=== PATIENT | female | born 1960 | race Caucasian/White ===

== ENCOUNTER 2016-08-16 21:06 | Inpatient (IN) | payer OTHER ==
[~2016-08-16] VITALS: Ht 160 cm; Wt 55.1 kg
--- NOTE | ~2016-08-16 | EKG ---
[address] [place] [address] ELECTROCARDIOGRAM REPORT Name: PIPPA DOWNS Room #: 236-P [facility] IN M.R.#: [id number] Admission: 08/16/16 Attend Phys: Bhaskar Joseph MD Discharge: Date of : 62 Report #: [id number] THIS REPORT FOR: //name// [facility] ED Test Date: 2016-08-16 Test Time: 21:52:01 Pat Name: PIPPA DOWNS Department: Room: 236 Gender: F Top Steep Tender: MZOOK : 1960 Requested By: Deanna Cloud Order Number: [id number] MD: Blair De León Measurements Intervals [place] Rate: 77 P: 26 WA: 127 QRS: 19 QRSD: 103 T: 196 QT: 409 QTc: 463 Interpretive Statements Sinus rhythm Repol abnrm suggests ischemia, anterolateral prolonged QT interval no previous ECGs available for comparison Electronically Signed On 08-17-2016 8:34:55 DIE WELDER by Blair De León [email or web address] <ELECTRONICALLY SIGNED> By: Blair De León MD, [facility] 08/17/16 0834 51 51 Blair De León MD, [facility] /EPI
--- NOTE | ~2016-08-16 | H ---
[facility] [place] [address] HISTORY AND PHYSICAL Name: PIPPA DOWNS Room #: 236-P [facility] IN ..#: [id number] Admission: 08/16/16 Attend Phys: Bhaskar Joseph MD Discharge: Date of : 62 Report #: [id number] THIS REPORT FOR: //name// CC: Rigoberto Velázquez ATTENDING PHYSICIAN: Dr. Bhaskar Joseph. PRIMARY CARE PHYSICIAN: Dr. Yuliana Soria. CHIEF COMPLAINT: Lethargy. HISTORY OF PRESENT ILLNESS: The patient is a 56-year-old female who was brought in to the ER by her family due to altered mental status. Apparently, she has been rather somnolent at home. It was difficult to arouse. This patient's daughter was reporting that she was recently started on hemodialysis about 2 weeks ago and has been on some pain medication, patient was evaluated in the ER and noted to have elevated ammonia. The family states she has had elevated ammonia in the past and had been on lactulose at one point, but this was discontinued last year. They deny any history of liver disease. She does have a history of congestive heart failure with an EF of 20-25% and a prior AICD placement. They state that her weight had been significantly elevated prior to starting dialysis. Her normal weight is 118 pounds but she has been up to 163 pounds prior to dialysis and that weight is slowly coming down. 5 days ago, she did notice a wet cough that has been mostly nonproductive and some nasal congestion with drainage that has been clear. The patient who is now more alert, says she does not really remember parts the day, today, but was sleeping a lot and was sleeping in her chair because she was having some trouble breathing. She also describes some generalized weakness. She is currently on BiPAP, but more arousable at this time. She denies any underlying history of lung disease, her ABG showed a mild respiratory acidosis. PAST MEDICAL HISTORY: Heart failure with an EF of 20%-25%, diabetes, end-stage renal disease with currently on hemodialysis, hypertension, hyperlipidemia, mood disorder, obstructive sleep apnea, pulmonary hypertension, blindness of the left eye and legal blindness of the right eye. PAST SURGICAL HISTORY: AICD placement, right arm fistula placement and bilateral thoracentesis. ALLERGIES: BACTRIM CAUSES NAUSEA AND VOMITING. HOME MEDICATIONS: Megace 20 mg q.h.s., Flomax 0.4 mg daily, carvedilol 12.5 mg b.i.d., losartan 50 mg daily, aspirin 81 mg daily. Hydrocodone 5/325 one tab q. 6 hours p.r.n., tramadol 50 mg b.i.d., clonazepam 0.25 mg q. 6 hours p.r.n., [address] [address] HISTORY AND PHYSICAL Name: PIPPA DOWNS Room #: 236-P [facility] IN M.R.#: [id number] Admission: 08/16/16 Attend Phys: Bhaskar Joseph MD Discharge: Date of : 62 Report #: [id number] Zoloft 25 mg q.h.s., torsemide 60 mg in the morning and 40 mg in the evenings and metolazone 5 mg Mondays, Wednesdays and Fridays, Combigan eyedrops, Azopt eyedrops, Travatan eyedrops. Sodium bicarbonate 650 mg daily, Colace 200 mg daily p.r.n. Zofran p.r.n., Tradjenta 2.5 mg daily, glipizide 2.5 mg daily, levothyroxine 0.025 mg daily, vitamin D daily, multivitamin daily. SOCIAL HISTORY: The patient is a never smoker, denies any alcohol or drug use. She lives at home with her ex- and her youngest daughter. She has been a total of 6 children. She has actually been taking some classes to finish her college degree and social work, she had been working as a Seamstress. FAMILY HISTORY: Significant for diabetes in her father. REVIEW OF SYSTEMS: Twelve point review of systems was reviewed with the patient, otherwise negative unless stated in the HPI. PHYSICAL EXAMINATION: GENERAL: The patient is an alert female in no acute distress. VITAL SIGNS: Temperature 36.7, heart rate 73, respirations 18, blood pressure is 107/87, oxygen is 89% on room air. HEENT: PERRLA. Sclerae is nonicteric. Oral mucosa is pink and moist. NECK: Supple, no JVD noted. CARDIOVASCULAR: Normal S1, S2. No murmurs, rubs or gallops. RESPIRATORY: Breath sounds are clear, in bilateral upper lobes she does have some coarseness to left posterior lower lobe. She has a loose nonproductive cough. ABDOMEN: Soft, nontender, nondistended, round with positive bowel sounds. VASCULAR: She does have 3+ bilateral lower extremity edema that is pitting. Pedal pulses are 1+. NEUROLOGIC: The patient is sleepy but very arousable. She is answering questions appropriately and following commands, moving all extremities equally. No focal weakness noted. LABORATORY DATA AND DIAGNOSTICS: WBC is 8.4, hemoglobin 9.5, platelets 221. Sodium 139, potassium 3.9, BUN 30, creatinine 3.7 and glucose is 245. Lactate was 2.8. AST is 256. ALT 128, alkaline phosphatase 294, ammonia was 66. Troponin 0.08. BNP greater than 35,000, albumin 2.3. Lipase 581. Alcohol level is less than 10. ASSESSMENT AND PLAN: 1. Encephalopathy. This appears to be toxic versus hepatic encephalopathy. Her ammonia level is elevated. Although there is no underlying history of liver disease. She does have elevated liver enzymes. She has been given a dose of lactulose and has not had any stool yet. She is currently on BiPAP for some mild respiratory acidosis and mental status is improving. 2. Pneumonia. She does have elevated lactate. We will add Zosyn and follow [facility] [address] [place] [address] HISTORY AND PHYSICAL Name: PIPPA DOWNS Room #: 236-P [facility] IN [facility].#: [id number] Admission: 08/16/16 Attend Phys: Bhaskar Joseph MD Discharge: Date of : 62 Report #: [id number] blood cultures. 3. Acute hypoxic and hypercapnia respiratory failure, this is likely due to fluid overload. She does have a significantly elevated BNP, which is likely due to congestive heart failure and renal failure. She is a dialysis patient and we will consult renal for hemodialysis today for fluid removal. Continue with BiPAP and repeat an ABG in the morning. 4. End-stage renal disease. Renal has been consulted for hemodialysis and more aggressive fluid removal. 5. Acute on chronic systolic heart failure. Last known EF was 20-25%. She does have an AICD in place and proceed with dialysis for fluid removal. 6. Transaminitis and mild pancreatitis. She may have some hepatic congestion due to congestive heart failure. We will further evaluate with abdominal ultrasound in the morning. She is not having any abdominal pain. 7. Diabetes. Blood sugar is elevated. We will continue glipizide as at home and Tradjenta and add sliding scale insulin. Check blood sugars a.c. and h.s. 8. Hypertension. Blood pressure is now elevated. Continue with losartan as at home. 9. Hypothyroidism. Continue Synthroid at home. 10. Deep venous thrombosis prophylaxis, place sequential compression devices. We will continue to follow the patient closely throughout the hospitalization and make changes based on clinical status. <ELECTRONICALLY SIGNED> By: ARA Alfaro 08/18/16 0646 0542 0721 ARA Alfaro /nt
--- NOTE | ~2016-08-16 | EKG ---
[address] [place] [address] ELECTROCARDIOGRAM REPORT Name: PIPPA DOWNS Room #: 236-P [facility] IN M.R.#: [id number] Admission: 08/16/16 Attend Phys: Bhaskar Joseph MD Discharge: Date of : 62 Report #: [id number] THIS REPORT FOR: //name// [facility] Test Date: 2016-08-17 Test Time: 07:03:37 Pat Name: PIPPA DOWNS Department: Room: 236 Gender: F Data Virtualization Consultant: mary ann : 1960 Requested By: Rigoberto Santoro Order Number: [id number] MD: Blair De León Measurements Intervals [place] Rate: 89 P: 3 ND: 117 QRS: 26 QRSD: 80 T: 192 QT: 347 QTc: 423 Interpretive Statements Sinus rhythm Nonspecific ST and T wave abnormality Compared to ECG 01/29/2016 09:24:33 No significant change was found Electronically Signed On 08-17-2016 8:36:23 WEIGHT LOSS SALES CONSULTANT by Blair De León [email or web address] <ELECTRONICALLY SIGNED> By: Blair De León MD, [facility] 08/17/16 0836 2 2 Blair De León MD, [facility] /EPI
--- NOTE | ~2016-08-16 | EEG ---
[facility] [address] [place] [address] ELECTROENCEPHALOGRAM Name: PIPPA DOWNS Room #: 464-P [facility] IN M.R.#: [id number] Admission: 08/16/16 Attend Phys: Bhaskar Joseph MD Discharge: 08/25/16 Date of : 62 Report #: [id number] THIS REPORT FOR: //name// CC: Rigoberto Velázquez DATE OF EE08/25/2016 This patient is being evaluated for confusion. EEG was done by placing the electrodes by standard 10-20 system of electrode placement. Both referential and sequential montages were used for recording. Background activity in this patient's EEG is about 9 Hz and 40 microvolt. The patient went to sleep that is associated with bilaterally symmetrical sleep spindle and vertex sharp waves. Photic stimulation is unremarkable. IMPRESSION: This EEG is intermixed with theta range slowing on both sides. That is a nonspecific abnormality, which can occur with drowsiness, effect of psychotropic medication, dementia, mild encephalopathy, etc. Finding is nonspecific and therefore, clinical correlation is recommended. Thank you very much for this referral. <ELECTRONICALLY SIGNED> By: Moises Chamorro MD 08/25/164 15 49 Moises Chamorro MD /nt
--- NOTE | ~2016-08-16 | HC ---
[facility] [place] [address] CONSULTATION Name: PIPPA DOWNS Room #: 464-P [facility].#: [id number] Admission: 08/16/16 Attend Phys: Bhaskar Joseph MD Discharge: 08/25/16 Date of : 62 Report #: [id number] THIS REPORT FOR: //name// CC: Rigoberto Velázquez REASON FOR CONSULTATION: Congestive heart failure. HISTORY OF PRESENT ILLNESS: The patient is a 56-year-old female with a history of congestive heart failure, status post Medtronic dual chamber ICD implantation by her international manager at [employer] who was admitted to the hospital on 08/16/2016 with altered mental status. The patient had recently been started on dialysis. When she presented here, she was having some acute respiratory issues with an elevated BNP of 35,000 as well as possible hepatic encephalopathy and pneumonia. She has been receiving dialysis with ultrafiltration and slowly her respiratory status has improved. She currently denies any chest pain or chest tightness. She denies any PND or orthopnea. She denies presyncope or syncope. She denies any recent ICD shocks. REVIEW OF SYSTEMS: GENERAL: She is not having any fevers or chills. HEENT: No blurred vision. CARDIOVASCULAR: As above. PULMONARY: She has been having some cough and wheezing, which is slowly improving. GASTROINTESTINAL: Not really having any nausea, vomiting or abdominal pain and no dysuria. GENITOURINARY: No dysuria. She still makes some urine. ENDOCRINE: No heat or cold intolerance. NEUROLOGIC: No focal weakness or headaches. PAST MEDICAL HISTORY: 1. Cardiomyopathy, EF of 20-30% based on echo on 08/17/2016. 2. Dual chamber Medtronic ICD implantation in 2014 per the patient's report. The patient reports it was placed by . 3. Chronic renal insufficiency, status post right AV fistula, currently receiving dialysis. 4. Diabetes. 5. Hyperlipidemia. 6. Hypertension. 7. Mood disorder. SOCIAL HISTORY: She does not smoke. FAMILY HISTORY: Noncontributory. [facility] [address] [place] [address] CONSULTATION Name: PIPPA DOWNS Room #: 464-P [facility] IN [facility]#: [id number] Admission: 08/16/16 Attend Phys: Bhaskar Joseph MD Discharge: 08/25/16 Date of : 62 Report #: [id number] ALLERGIES: INCLUDE BACTRIM and SULFA. PHYSICAL EXAMINATION: VITAL SIGNS: Temperature is 36.6, pulse 99, respiration 18, blood pressure 139/61, sats are 98%. GENERAL: She is in no acute distress. HEENT: Oropharynx is clear. Sclerae anicteric. NECK: Supple, with no thyromegaly. HEART: Regular rate and rhythm with normal S1 and S2. No S3, S4. She does not have elevated jugular venous pressure. She does not have a positive hepatojugular reflex. LUNGS: Demonstrate some mild expiratory wheezes, but there are no crackles. ABDOMEN: Soft, nontender, nondistended with no hepatosplenomegaly. EXTREMITIES: There is no clubbing, cyanosis or edema. NEUROLOGICAL: Cranial nerves 2-12 are intact. LABORATORY DATA: White count is 9, hemoglobin 8.6, hematocrit is 26.7, platelets are 191. Blood gas 7.4, pCO2 42, pO2 83 performed today at 10 a.m. Her INR is 1.3. Chemistry, potassium is 4.2. Her BNP was greater than 35,000 on admission. Her echo as I reviewed above, on 08/17/2016 showed an EF of 20-30% with PA pressures of 58. Her chest x-ray, I personally reviewed, the most recent shows improvement in pulmonary edema from admission. There is evidence of a dual chamber ICD that is Medtronic. Her CT of the chest showed pleural effusion on the left, but noting of significance. ASSESSMENT AND PLAN: In summary, the patient is a 56-year-old presenting with [id number] left ventricular systolic dysfunction as well as possible pneumonia. In terms of managing her cardiomyopathy, I recommend continuing with her current beta namita dose and angiotensive receptor blocking agent. In terms of her diuresis, I will leave this up to the corporation lawyer who will optimize her fluids status via dialysis. She is on a low dose of oral diuretic, she still makes some urine. I would like to obtain a device interrogation to ensure that device is functioning normal and there is no noted arrhythmias. Thus far, on telemetry, she has had no significant arrhythmias other than some sinus tachycardia. Thank you for allowing us to participate in her care and we will continue to follow. <ELECTRONICALLY SIGNED> By: Victor Manuel Shay MD 08/25/16 1346 1508 0026 Victor Manuel Shay MD /nt
--- NOTE | ~2016-08-16 | HC ---
[facility] [place] [address] CONSULTATION Name: PIPPA DOWNS Room #: 236-P [facility] IN ..#: [id number] Admission: 08/16/16 Attend Phys: Bhaskar Joseph MD Discharge: Date of : 62 Report #: [id number] THIS REPORT FOR: //name// CC: Rigoberto Joseph Issa Eber DATE OF SERVICE: 08/17/2016 Nephrology Consultation REASON FOR CONSULTATION: End-stage renal disease requiring dialysis. HISTORY OF PRESENT ILLNESS: This is a 56-year-old female, who presented to the Emergency Room last evening with some apparent mental status changes. She had some mild confusion described by the family. Apparently, this was not associated with hypoglycemia. She does have rather labile diabetes. She tells me today that she has actually been doing better. She has had cough for a couple of days with no sputum, mild chest discomfort with cough. No fever of which she is aware. She did have a mild infiltrate noted on the left base on chest x-ray and has been started on some azithromycin. From a renal standpoint, the patient has end-stage renal disease. She has been dialyzing over the past 3 to 4 weeks at [facility] in [place]. She dialyzes on Sunday, , Sunday basis. She has been massively volume overloaded and she has been coming down on her weight about 1 kg per treatment and has had a net drop of over 10 kg in the last 3 weeks. She still is edematous on the lower extremities and the abdomen. She has been dialyzing using a right upper arm fistula and that has been working well. Overall, she is very pleased with how she has done with dialysis. The other issues that upon arrival, she was noted to have an elevated ammonia level that was in the Emergency Room. Her ammonia level was 66. In addition, she had mild transaminitis with an AST of 256 and ALT of 128 and alkaline phosphatase of 296, total bilirubin was 1.0. We have some remote measures of the transaminases and they have previously been normal, so this is a change. I did talk to the dialysis unit. She had negative hepatitis B markers on presentation, as is usually checked. She did start to the hepatitis B vaccine and has received one of her series of that recently. The patient recalls a couple of years ago being at [facility] and being told she had an elevated transaminase. She is on lactulose for a while, but that was eventually stopped and she is a bit sketchy on those details. PAST MEDICAL HISTORY: Is that of longstanding diabetes mellitus. She had diabetic nephropathy. She had extensive proteinuria. She eventually got to the [address] [address] CONSULTATION Name: PIPPA DOWNS Room #: 236-P [facility] IN M.R.#: [id number] Admission: 08/16/16 Attend Phys: Bhaskar Joseph MD Discharge: Date of : 62 Report #: [id number] point where she had chronic kidney disease, progressing from stage IV to stage V and was unable to control volume, so she was started on dialysis, as noted above. She has had recurrent urinary tract infections. She has had some hyperlipidemia. She was recently diagnosed with hypothyroidism and started on thyroid replacement. She has been chronically in a poor nutritional state and was started on some Megace to help with that. MEDICATIONS: On admission include carvedilol 12.5 mg b.i.d., clonazepam p.r.n, glipizide 2.5 mg daily, levothyroxine 0.025 mg daily, Tradjenta 2.5 mg daily, losartan 50 mg daily, Megace 20 mg twice daily. Metolazone 5 mg three days weekly on Sunday, Sunday, Sunday. Zoloft 50 mg daily, sodium bicarbonate 650 mg daily, tamsulosin 0.4 mg daily, torsemide 40 mg daily, tramadol p.r.n., 3 different eye drops. She gets erythropoietin at dialysis. ALLERGIES: Listed to BACTRIM, which cause GI distress. FAMILY HISTORY: Negative for renal disease. SOCIAL HISTORY: The patient is . Lives in [place], [place]. She is disabled. She has a couple of daughters, who assist in her care. REVIEW OF SYSTEMS: States that she had been feeling better with her dialysis therapy. Her volume had been improving. She was having less edema. Appetite is still marginal. She denies recent nausea or vomiting. She is well aware that her sugars are very labile. She has had cough for a couple of days. No sputum at this point. She does have some mild pleuritic chest pain with cough. She is unaware of fevers or chills. No rashes, although she has some erythema with her chronic lower extremity edema. She has a right upper arm fistula and has been pleased with its flow and function at dialysis and it has been doing well with cannulations. No diarrhea. She denies dysuria at this time. She still does make some urine and is still on the diuretics. No recent visual or hearing change. Her weight has been dropping with the progressive ultrafiltration with her dialysis. PHYSICAL EXAMINATION: GENERAL: Very frail 56-year-old female, looks substantially older than her stated age. VITAL SIGNS: Blood pressure 154/73, heart rate 89, temperature 98.6, oxygen saturation 98% and respiratory rate 16. HEENT: Shows somewhat sunken facial features. Pupils are equal and reactive. Sclerae nonicteric. Oral mucosa is moist. NECK: Veins are not distended. No adenopathy. CHEST: Shows a few rales in the bases, more severe on the left than the right, fairly symmetrical excursion. CARDIOVASCULAR: Heart has a regular rate and rhythm with a grade 2 systolic murmur. [facility] [address] [place] [address] CONSULTATION Name: PIPPA DOWNS Room #: [address] [place] [address] [place] [facility]#: [id number] Admission: 08/16/16 Attend Phys: Bhaskar Joseph MD Discharge: Date of : 62 Report #: [id number] ABDOMEN: Mildly protuberant. She has 2+ abdominal wall edema. Bowel sounds are present. I am unable to palpate organomegaly or masses. In particular, no right upper quadrant tenderness. EXTREMITIES: Show a nice right upper arm fistula with excellent bruit and thrill. There is no upper extremity edema. She has brawny lower extremity edema 4+ to the knees, 2+ through the thighs. NEUROLOGIC: At this point, she is awake, alert and oriented, without any focal findings. LABORATORY DATA: From today: Sodium 139, potassium 3.9, chloride 98, bicarbonate 27, BUN 30, creatinine 3.7, glucose 245. AST 256, ALT 128, calcium 8.5, total bilirubin 1.0, total protein 6.3, albumin 2.6, ammonia down to 47. INR 1.7. White count 8.4; hemoglobin 9.5; hematocrit 29.5; platelets 221,000. Differential on the white count 87 segs, 5 lymphs, 6 monos. ASSESSMENT: 1. End-stage renal disease. She is due for dialysis today. We will schedule that for later this afternoon. We will go for 3 L of ultrafiltration to continue to work on her volume control. 2. Mental status changes yesterday. They have totally clear today, I am more concern that she might have been hypokalemic at that time. <ELECTRONICALLY SIGNED> By: Issa Velázquez MD 08/18/16 0913 0952 1054 Issa Velázquez MD /nt
--- NOTE | ~2016-08-16 | 2DMMODE ---
[facility] [place] [address] 2 D/M-MODE ECHOCARDIOGRAM Name: PIPPA DOWNS Room #: 236-P [facility] IN [facility]#: [id number] Admission: 08/16/16 Attend Phys: Bhaskar Joseph MD Discharge: Date of : 62 Date of Service: 08/17/16 1029 Report #: [id number] THIS REPORT FOR: //name// Transthoracic Echocardiography Ordering physician: Mirela Garces Referring physician: Issa Velázquez, Mirela Fisher Refinery Operator Crude Unit: CARLITA Mitchell Indications/History: ICD, DM, HTN. BP: 149 / HR: 90bpm Height: 62in Weight: 138.7lb 70 Study data: M-mode, complete 2D, complete spectral Doppler, and color Doppler. Location: Bedside. Routine. Image quality was good. 2D measurements Normal Normal LVID ED 41.4mm 36-57 IVS ED 9.4mm 6-11 LVID ES 36.9mm 23-40 LVPW ED 9.3mm 6-11 LA volume 29ml/m2 16-28 AoRoot diam 25.4mm 21-37 index ED LVOT diameter 18mm 18-23 Findings: Left ventricle: The cavity size was normal. Wall thickness was normal. Systolic function was severely reduced. The estimated ejection fraction was in the range of 25% to 30%. Diffuse hypokinesis. Right ventricle: The cavity size was dilated. Pacer wire or catheter noted in right ventricle. Systolic function was normal. Right atrium: The atrium was dilated. Pacer ordefibrillatorwiresnoted in right atrium. Left atrium: The atrium was at the upper limits of normal in size. Volume index: 29ml/m2 (S). Aortic valve: Trileaflet; mildly thickened, mildly [facility] [address] [place] [address] 2 D/M-MODE ECHOCARDIOGRAM Name: PIPPA DOWNS Room #: 236-P [facility] IN [facility].#: [id number] Admission: 08/16/16 Attend Phys: Bhaskar Joseph MD Discharge: Date of : 62 Date of Service: 08/17/16 1029 Report #: [id number] calcified leaflets. Doppler: There was no stenosis. No regurgitation. Peak velocity: 143.6cm/s (S). Mitral valve: Structurally normal valve. Doppler: There was no evidence for stenosis. Mild regurgitation. Peak E-wave velocity: 79.3cm/s. Peak gradient: 2.5mm Hg (D). Peak A-wave velocity: 101.3cm/s. Tricuspid valve: Structurally normal valve. Doppler: There was no evidence for stenosis. Moderate regurgitation. Regurgitant peak velocity: 328.5cm/s. Peak RV-RA gradient: 43mm Hg (S). Pulmonic valve: Structurally normal valve. Doppler: There was no evidence for stenosis. Mild regurgitation. Pericardium: A small pericardial effusion was identified. Aorta: Aortic root: The aortic root was normal in size. Pulmonary artery: Systolic pressure was estimated to be 58mm Hg. Diastolic function: Doppler parameters are consistent with abnormal left ventricular relaxation (grade 1 diastolic dysfunction). Systemic veins: Inferior vena cava: The vessel was dilated; respirophasic changes in dimension were absent. Conclusions 1. Left ventricle: Systolic function was severely reduced. The estimated ejection fraction was in the range of 25% to 30%. Diffuse hypokinesis. Doppler parameters are consistent with abnormal left ventricular relaxation (grade 1 diastolic dysfunction). 2. Right atrium: Pacer ordefibrillatorwiresnoted in right atrium. 3. Aortic valve: Trileaflet; mildly thickened, mildly calcified leaflets. There was no stenosis. No regurgitation. 4. Mitral valve: Structurally normal valve. Mild regurgitation. 5. Pericardium, extracardiac: A small pericardial effusion was identified. 6. Pulmonary arteries: Systolic pressure was estimated to be 58mm Hg. <ELECTRONICALLY SIGNED> By: Blair De León MD, [facility] 08/17/16 1218 1029 1218 Blair De León MD, [facility] /apurva
--- NOTE | ~2016-08-16 | HC ---
[facility] [address] [place] [address] CONSULTATION Name: PIPPA DOWNS Room #: 464-P [facility].#: [id number] Admission: 08/16/16 Attend Phys: Bhaskar Joseph MD Discharge: 08/25/16 Date of : 62 Report #: [id number] THIS REPORT FOR: //name// CC: Rigoberto Schulteothy Eber DATE OF SERVICE: 08/18/2016 HISTORY OF PRESENT ILLNESS: The patient is a 56-year-old white female who was admitted with mental status changes. She was noted to be lethargic, difficult to arouse. She had been started on hemodialysis approximately 2 weeks ago. She had an elevated ammonia. She was diagnosed with a toxic versus hepatic encephalopathy. No underlying history of liver disease, but she had elevated liver enzymes. She also was diagnosed with a pneumonia and IV antibiotics were started. She had acute hypoxic and hypercapnic respiratory failure thought likely due to fluid overload. She has acute on chronic systolic heart failure. Noted to have transaminitis and mild pancreatitis with some hepatic congestion due to congestive heart failure. She has been treated in the intensive care unit. Her respiratory failure has improved. Pulmonary is following her pulmonary infiltrate. We are seeing her in rehabilitation medicine consultation. PAST MEDICAL HISTORY: Includes congestive heart failure, prior AICD, history of end-stage renal disease on hemodialysis started a couple of weeks ago, CHF, obstructive sleep apnea, right arm fistula, sleep apnea, pulmonary hypertension, blindness of the left eye and legal blindness of the right eye. PAST SURGICAL HISTORY: Includes the AICD placement and past history of bilateral thoracentesis. ALLERGIES: BACTRIM causes nausea and vomiting. MEDICATIONS: Please see the full medication listing. FAMILY HISTORY: Significant for diabetes in her father. SOCIAL HISTORY: Nonsmoker, lives at home with her ex- and her youngest daughter. There are 13 steps up. She has a Medicaid homemaker 5 hours per day 7 days per week. She did need some assistance, especially when the edema was worse with her congestive heart failure but otherwise did most of the dressing herself. She did not typically utilize gait aids within the house but used a roller walker with a seat outside the house and also has a manual wheelchair. She has a daughter who is a nurse here at [facility] on the 3rd floor. The male family members typically carry her up the steps, although she [facility] [address] [place] [address] CONSULTATION Name: PIPPA DOWNS Room #: 464-P [facility] IN ..#: [id number] Admission: 08/16/16 Attend Phys: Bhaskar Joseph MD Discharge: 08/25/16 Date of : 62 Report #: [id number] was able to walk down the steps with assistance premorbidly. REVIEW OF SYSTEMS: No current complaints of chest pain, shortness of breath or abdominal discomfort. Notes that she is starting to feel better. Denies any focal extremity pain complaints. PHYSICAL EXAMINATION: GENERAL: A 56-year-old white female, in no obvious distress, seen in the intensive care unit. VITAL SIGNS: Last recorded temperature 98.4, pulse 95, respirations are 17, blood pressure 159/72. NEUROLOGIC: She is alert, follows basic 1 step commands. Some latency to her responses. She does defer some of her answers to her daughter. Facies appeared to be symmetric. Nasal prong O2 is in place. She does have decreased vision as noted above. UPPER EXTREMITIES: She has functional range of motion of both upper extremities, although she does have the right arm fistula. Strength is probably a grade 4-/5. LOWER EXTREMITIES: No focal calf swelling. Strength is a grade 4- to 3+/5. DTRs are decreased. She does tend to fatigue fairly quickly. ASSESSMENT: A 56-year-old white female with the following problem list: 1. Encephalopathy appears to be toxic versus hepatic. This is improving. 2. Acute hypercapnic respiratory failure. 3. Elevated ammonia and liver function tests. 4. Pulmonary infiltrate. 5. End-stage renal disease on hemodialysis. 6. Severe pulmonary hypertension. 7. Cardiomyopathy. 8. Diabetes mellitus. 9. Significant decreased vision premorbidly. 10. History of automatic implantable cardioverter defibrillator placement. PLAN: Therapy evaluations are underway. She may be a candidate for an acute in-hospital inpatient rehabilitation stay. We will need to see how she does in therapies. Thank you for asking us to follow in this patient's care. <ELECTRONICALLY SIGNED> By: Kyaw Cross MD 09/05/16 1617 1213 1324 Kyaw Cross MD /nt
--- NOTE | ~2016-08-16 | CNG ---
[facility] [place] [address] CYTO-NONGYN REPORT PROCEDURE Name: PIPPA DOWNS Fernando Room #: 464-P ADM IN M.R.#: [id number] Admission: 08/16/16 Date of : 62 Discharge: Report #: [id number] Path Case #: [id number] CYTOPATHOLOGY REPORT COLLECTION DATE: 08/21/2016 RECEIVED DATE: 08/22/2016 SUBMITTING PHYS: Dr. Rigoberto Santoro OTHER PHYS: Dr. Bhaskar Joseph CLINICAL HISTORY: CHF, Hypercapnia, Stage 5 RF, Metabolic encephalopathy. SPECIMEN(S) RECEIVED: A.Pleural fluid * * * * * * * * * * * * FINAL DIAGNOSIS: A. Pleural fluid: NEGATIVE FOR MALIGNANT CELLS. Mesothelial cells, lymphocytes, and debris. PATHOLOGIST: Nettie Ambriz M.D. REPORT ELECTRONICALLY SIGNED BY: Nettie Ambriz M.D. DATE/TIME: 08/23/2016 15:17 * * * * * * * * * * * * GROSS PATHOLOGY: A. Pleural fluid: The specimen is submitted unfixed, labeled "P[place]a [place]s". Received by the Cytology Department is 20 mL of tanvi fluid. One ThinPrep slide and a cell block were prepared. (clt 08.22.2016) VICE PRESIDENT OF HUMAN RESOURCES(S): DENISE Horner([facility]) INITIAL CPT CODE(S): A; 95951, 69156 Professional services performed by [facility] at [facility] [address], [place] [address] Technical services performed by [facility] at [address] [place] [address]., [address], [place] [address]. [facility] [address] [place] [address], [facility] [address] [place] [address] PHONE: [phone] [facility] [address] [place] [place] [address] CYTO-NONGYN REPORT PROCEDURE Name: PIPPA DOWNS Room #: 464-P ADM IN M.R.#: [id number] Admission: 08/16/16 Date of : 62 Discharge: Report #: [id number] Path Case #: [id number] DIRECTOR: Antony Melton M.D. * * * END OF REPORT * * *
--- NOTE | ~2016-08-16 | HC ---
[facility] [place] [address] CONSULTATION Name: PIPPA DOWNS Room #: 236-P [facility] IN ..#: [id number] Admission: 08/16/16 Attend Phys: Bhaskar Joseph MD Discharge: Date of : 62 Report #: [id number] THIS REPORT FOR: //name// CC: Rigoberto Velázquez DATE OF SERVICE: 08/16/2016 REASON FOR CONSULTATION: Acute respiratory failure. IMPRESSION: 1. Acute hypercapnic respiratory failure/pulmonary infiltrate possible pneumonia 2. Possible Kayode-Rocha respirations. 3. Elevated ammonia. 4. Renal failure. 5. Cardiomyopathy. 6. Severe pulmonary hypertension. 7. Macrocytic anemia. 8. Elevated liver function tests, question related to hepatic congestion from right-sided failure. PLAN: Discussed with ____, will place in ICU. May use BiPAP at night, should she fall asleep. We will continue to use lactulose to get her ammonia level down. Dr. Velázquez has been called and will do dialysis in the morning. HISTORY OF PRESENT ILLNESS: This is a very pleasant 56-year-old female who came in with altered mental status, had periods of somnolence, lethargy, recently diagnosed with stage V renal failure, on dialysis 2 weeks ago. Weight has been starting to go down. She is on medicines for chronic pain, but only took one earlier today. She complains of some cough but no definite sputum production. No fever, chills or sweats. Positive nausea. PAST MEDICAL HISTORY AND SURGICAL HISTORY: Include pacemaker automatic implantable cardioverter-defibrillator, fistula placement. CURRENT MEDICATIONS: Include aspirin, cholecalciferol, Flomax, glipizide, sodium bicarbonate, sertraline, Megace, tramadol, ____, brinzolamide, travoprost, Zofran, clonazepam, Colace, Coreg, Synthroid, Tradjenta, Demadex. ALLERGIES: BACTRIM AND ____. SOCIAL HISTORY: Negative current tobacco or EtOH use. [facility] [address] [address] CONSULTATION Name: PIPPA DOWNS Fernando Room #: 236-P [facility] IN ..#: [id number] Admission: 08/16/16 Attend Phys: Bhaskar Joseph MD Discharge: Date of : 62 Report #: [id number] FAMILY HISTORY: Noncontributory at present. REVIEW OF SYSTEMS: History of UTI, CKD, neuropathy, hyperlipidemia, IBS, hypertension, cardiomyopathy, cardiac arrest in 2013, anemia, CKD, neuropathy, uropathy, diabetes-induced glaucoma, retinopathy, weakness, headache. PHYSICAL EXAMINATION: VITAL SIGNS: Pulse 73, respirations 18, blood pressure 107/87. EYES: Negative icterus. NECK: Trachea midline. LUNGS: Showed decreased breath sounds, left greater than right. HEART: Regular. ABDOMEN: Bowel sounds present, edematous. EXTREMITIES: Moves all extremities. Positive lower extremity edema. Daughter related that they may have had cellulitis in the past or what appeared to be cellulitis, but not treated with antibiotics. LABORATORY DATA: BUN 30, creatinine 3.6, glucose 231, lipase 581, SGPT 39. SGOT 110, albumin 2.3, lactate 2.8. EKG showed T-wave abnormality, no longer present. Chest x-ray showed left basilar atelectasis, similar to prior, ammonia 66. Alcohol less than 10, pH 7.25, pCO2 of 50, pO2 of 107 on 4 liters. White count 7.5, hemoglobin 10.1, MCV 105.5, platelets 214, will follow closely with you. She did have an echocardiogram this past summer which amazingly showed an ejection fraction of 25-30%, dilated right and left atrium, mild mitral regurgitation, mild pulmonic regurgitation, PA systolic of 88. <ELECTRONICALLY SIGNED> By: Rigoberto Santoro MD 08/17/16 1832 2303 0835 Rigoberto Santoro MD /nt
[~2016-08-16 21:06] MED LIST: ASPIRIN325 PO; AZOPT5 ML OP; CARVEDILOL25 MG PO; CLONAZEPAM 0.50.5 M1 PO; COLACE100 MG PO; COMBIGAN EYE DR10 ML OPHTHALMIC; COZAAR 50 MG TA50 M2 PO; DEMADEX20 MG PO; FLOMAX0.4 MG PO; GLUCOTROL5 MG PO; HYDROCODON-ACE1 EAC7 PO; HYDROCORTISONE CREAM TOP; LOSARTAN POTASS50 MG PO; MEGESTROL ACETA20 MG PO; METOLAZONE 2.52.5 M1 PO; MULTIVITAMINS1 EAC7 PO; NITROSTAT0.4 MG SL; PROTONIX40 M2 PO; SODIUM BICARBO650 M3 PO; TOPROL XL50 MG; TRADJENTA5 MG PO; TRAMADOL 50 MG50 MG PO; TRAVATAN Z2.5 ML OPHTHALMIC; VITAMIN D1000 UNI1 PO; ZOCOR40 MG; ZOFRAN4 MG PO; ZOLOFT50 MG PO
[2016-08-16 21:26] LABS: ABSOLUTE NEUTROPHILS 6.1 thou/uL (1.4-8.2); BASOPHILS 0.8 % (0.0-2.0); HEMATOCRIT 31.1 % (37.0-47.0); HEMOGLOBIN 10.1 gm/dL (12.0-15.0); MANUAL DIFF NO; MCH 34.1 pg (26.0-34.0); MCHC 32.3 % (28.0-37.0); MCV 105.5 fL (80.0-100.0); MONOCYTES 6.5 % (1.0-8.0); PLATELET COUNT 214 thou/uL (150-400); POLYS 81.7 % (36.0-66.0); RBC 2.95 mil/uL (4.20-5.00); RDW 19.1 % (10.5-14.5); WBC 7.5 thou/uL (4.0-11.0)
[2016-08-16 21:27] LABS: ABG SAMPLE TYPE ARTERIAL; BE(vivo) -5.7 mmol/L (-2 to +3); HCO3 21.6 mmol/L (22.0-26.0); LACTATE 3.19 mmol/L (0.5-2.0); O2(CT) 14.4 mL/dL (15.0-23.0); O2Hb 95.7 % (92.0-98.0); PCO2 50.3 mmHg (35.0-45.0); PO2 106.9 mmHg (80.0-100.0); STICK SITE L.BRACHIAL; sO2 97.1 % (92.0-98.0); tCO2 23.1 mmol/L (24.0-30.0)
[2016-08-16] MEDS ORDERED: LEVOTHYROXIN0.025 MG PO (21:34)
[2016-08-16 21:35] LABS: ANION GAP 15 mmol/L (7-16); BUN 30 mg/dL (7-18); CALCIUM 8.4 mg/dL (8.5-10.1); CHLORIDE 98 mmol/L (98-107); CO2 26 mmol/L (21-32); CREATININE 3.6 mg/dL (0.6-1.3); GLUCOSE 231 mg/dL (70-99); POTASSIUM 4.6 mmol/L (3.5-5.1); SODIUM 139 mmol/L (136-145)
[2016-08-16 21:38] LABS: POC CA IONIZED 4.4 mg/dL (4.5-5.3); POC CREATININE 3.1 mg/dL (0.6-1.3); POC HEMOGLOBIN 11.6 gm/dL (12.0-15.0); POC POTASSIUM 4.1 mmol/L (3.5-5.1)
[2016-08-16] MEDS ORDERED: TRADJENTA5 MG PO (21:41)
[2016-08-16] MEDS ORDERED: DEMADEX20 MG PO ×2 (21:43)
[2016-08-16] MEDS ORDERED: HYDROCODONE-AP1 EAC6 PO (21:45)
[2016-08-16 21:48] LABS: ALBUMIN 2.3 g/dL (3.4-5.0); ALKALINE PHOSPHATASE 283 U/L (46-116); DIRECT BILIRUBIN 0.8 mg/dL (<0.1-0.3); SGOT 110 U/L (15-37); SGPT 39 U/L (30-65); TOTAL PROTEIN 5.8 g/dL (6.4-8.2); TROPONIN-I 0.08 ng/mL (<0.04-0.07)
[2016-08-16 22:09] LABS: NT-PRO BRAIN NAT PEPTIDE > 35000 pg/mL (<300)
[2016-08-16 23:32] LABS: INR 1.7
[2016-08-17] VITALS (52 sets, daily range): BP systolic 124–182; BP diastolic 55–107
[2016-08-17 01:50] LABS: ABSOLUTE NEUTROPHILS 7.4 thou/uL (1.4-8.2); BASOPHILS 1.4 % (0.0-2.0); EOSINOPHILS 0.1 % (0.0-3.0); HEMATOCRIT 29.5 % (37.0-47.0); HEMOGLOBIN 9.5 gm/dL (12.0-15.0); LYMPHOCYTES 4.7 % (24.0-44.0); MCH 33.5 pg (26.0-34.0); MCV 104.7 fL (80.0-100.0); MONOCYTES 6.5 % (1.0-8.0); PLATELET COUNT 221 thou/uL (150-400); POLYS 87.3 % (36.0-66.0); RBC 2.82 mil/uL (4.20-5.00); RDW 18.7 % (10.5-14.5); WBC 8.4 thou/uL (4.0-11.0)
[2016-08-17 02:05] LABS: ALBUMIN 2.6 g/dL (3.4-5.0); CALCIUM 8.5 mg/dL (8.5-10.1); CREATININE 3.7 mg/dL (0.6-1.3); MANUAL DIFF NO; POTASSIUM 3.9 mmol/L (3.5-5.1); TOTAL PROTEIN 6.3 g/dL (6.4-8.2)
[2016-08-17 05:54] LABS: ABG SAMPLE TYPE ARTERIAL; BE(vivo) -1.2 mmol/L (-2 to +3); HCO3 23.4 mmol/L (22.0-26.0); LACTATE 1.54 mmol/L (0.5-2.0); O2(CT) 13.8 mL/dL (15.0-23.0); O2Hb 97.7 % (92.0-98.0); PCO2 38.6 mmHg (35.0-45.0); PO2 149.3 mmHg (80.0-100.0); STICK SITE L.RADIAL; sO2 98.9 % (92.0-98.0); tCO2 24.6 mmol/L (24.0-30.0)
[2016-08-17 05:55] LABS: Pressure Support 6 cm H20
[2016-08-17 17:10] LABS: HEPATITIS C VIRUS AB 0.1 (0.0-0.9)
[2016-08-18] VITALS (46 sets, daily range): BP systolic 87–162; BP diastolic 46–134
[2016-08-18 04:58] LABS: HEMATOCRIT 27.5 % (37.0-47.0); HEMOGLOBIN 9.1 gm/dL (12.0-15.0); MCH 33.7 pg (26.0-34.0); MCHC 33.1 % (28.0-37.0); MCV 101.9 fL (80.0-100.0); RBC 2.7 mil/uL (4.20-5.00); RDW 18.6 % (10.5-14.5); WBC 8.6 thou/uL (4.0-11.0)
[2016-08-18 05:39] LABS: ALBUMIN 2.2 g/dL (3.4-5.0); CALCIUM 8.2 mg/dL (8.5-10.1); POTASSIUM 3.9 mmol/L (3.5-5.1); TOTAL BILIRUBIN 0.8 mg/dL (<0.1-1.0); TOTAL PROTEIN 5.6 g/dL (6.4-8.2)
[2016-08-18 05:41] LABS: CREATININE 2.3 mg/dL (0.6-1.3)
[2016-08-19] VITALS (33 sets, daily range): BP systolic 81–161; BP diastolic 21–117
[2016-08-19 05:04] LABS: HEMATOCRIT 27.8 % (37.0-47.0); HEMOGLOBIN 8.9 gm/dL (12.0-15.0); MCH 33.2 pg (26.0-34.0); MCHC 31.9 % (28.0-37.0); MCV 104.2 fL (80.0-100.0); RBC 2.67 mil/uL (4.20-5.00); RDW 19.2 % (10.5-14.5); WBC 8.8 thou/uL (4.0-11.0)
[2016-08-19 05:42] LABS: ALBUMIN 2.1 g/dL (3.4-5.0); CALCIUM 8.1 mg/dL (8.5-10.1); POTASSIUM 3.9 mmol/L (3.5-5.1); TOTAL BILIRUBIN 0.9 mg/dL (<0.1-1.0); TOTAL PROTEIN 5.7 g/dL (6.4-8.2)
[2016-08-19] MEDS ORDERED: NEPHROCAPS SOFT1 CAP PO (10:47)
[2016-08-20 05:39] VITALS: BP 129/67
[2016-08-20 08:11] VITALS: BP 156/72
[2016-08-20 12:10] VITALS: BP 147/68
[2016-08-20 16:32] VITALS: BP 104/51
[2016-08-20 20:00] VITALS: BP 138/66
[2016-08-21 04:00] VITALS: BP 118/53
[2016-08-21 05:54] LABS: HEMATOCRIT 28.1 % (37.0-47.0); HEMOGLOBIN 8.9 gm/dL (12.0-15.0); MCH 33.2 pg (26.0-34.0); MCHC 31.8 % (28.0-37.0); MCV 104.6 fL (80.0-100.0); PLATELET COUNT 191 thou/uL (150-400); RBC 2.68 mil/uL (4.20-5.00); RDW 18.6 % (10.5-14.5); WBC 10.1 thou/uL (4.0-11.0)
[2016-08-21 06:13] LABS: ALBUMIN 2.2 g/dL (3.4-5.0); CALCIUM 8.5 mg/dL (8.5-10.1); POTASSIUM 4.3 mmol/L (3.5-5.1); TOTAL PROTEIN 6.5 g/dL (6.4-8.2)
[2016-08-21 06:26] LABS: MANUAL DIFF YES
[2016-08-21 07:33] LABS: ABSOLUTE NEUTROPHILS 8.4 thou/uL (1.4-8.2); ANISOCYTOSIS 2+; MACROCYTES 1+; TOTAL CELL COUNT 100
[2016-08-21 08:46] VITALS: BP 120/56
[2016-08-21 09:43] VITALS: BP 131/60
[2016-08-21 11:12] LABS: HEMATOCRIT 26.7 % (37.0-47.0); HEMOGLOBIN 8.6 gm/dL (12.0-15.0); MCH 33.7 pg (26.0-34.0); MCHC 32.2 % (28.0-37.0); MCV 104.6 fL (80.0-100.0); RBC 2.56 mil/uL (4.20-5.00); RDW 18.7 % (10.5-14.5)
[2016-08-21 11:20] LABS: CALCIUM 8.3 mg/dL (8.5-10.1); CREATININE 3.3 mg/dL (0.6-1.3); POTASSIUM 4.2 mmol/L (3.5-5.1)
[2016-08-21 11:26] LABS: APTT 30.1 Seconds (24.5-32.8); INR 1.3; PROTIME 13.4 Seconds (9.3-11.4)
[2016-08-21 12:04] LABS: ABG SAMPLE TYPE ARTERIAL; BE(vivo) -2.5 mmol/L (-2 to +3); HCO3 24.6 mmol/L (22.0-26.0); LACTATE 1.99 mmol/L (0.5-2.0); O2(CT) 12.5 mL/dL (15.0-23.0); O2Hb 87.4 % (92.0-98.0); PCO2 54.4 mmHg (35.0-45.0); STICK SITE L.RADIAL; pH 7.274 (7.360-7.450); sO2 88.8 % (92.0-98.0); tCO2 26.3 mmol/L (24.0-30.0)
[2016-08-21 13:50] VITALS: BP 124/59
[2016-08-21 21:18] VITALS: BP 139/76
[2016-08-21 23:53] VITALS: BP 141/68
[2016-08-22 03:59] VITALS: BP 131/64
[2016-08-22 07:00] VITALS: BP 140/64
[2016-08-22 12:44] VITALS: BP 152/68
[2016-08-22] MEDS ORDERED: COZAAR 25 MG TA25 M1 PO (14:01)
[2016-08-22] MEDS ORDERED: HUMALOG100 UNIT/1 SUBQ (14:01)
[2016-08-22] MEDS ORDERED: LANTUS100 UNIT/M SUBQ (14:01)
[2016-08-22] MEDS ORDERED: PROCRIT20000 UNIT SUBQ (14:01)
[2016-08-22] MEDS ORDERED: TRAMADOL 50 MG50 MG PO (14:07)
[2016-08-22] MEDS ORDERED: HYDROCODON-ACE1 EAC7 PO (14:07)
[2016-08-22 16:25] VITALS: BP 127/54
[2016-08-22 20:37] VITALS: BP 153/65
[2016-08-23 04:38] VITALS: BP 153/65
[2016-08-23 08:45] VITALS: BP 164/75
[2016-08-23 09:09] LABS: BF LINING CELLS 17 % (Not Estab.); BF MACROPHAGE 3 % (Not Estab.); BF NEUTROPHILS 8 % (0-24); BF NUCLEATED CELLS 28 /mm3 (0-499); BF RBC 1000 /uL (Not Estab.); CLARITY HA (Clear); COLOR RD (())
[2016-08-23 11:13] LABS: % SATURATION 16 % (15-55); IRON 26 ug/dL (27-159); TIBC 167 ug/dL (250-450); UIBC 141 ug/dL (131-425)
[2016-08-23 12:30] VITALS: BP 116/55
[2016-08-23 14:27] LABS: TOTAL VOLUME 60
[2016-08-23 15:56] VITALS: BP 14/68; BP 72/68
[2016-08-23 16:09] LABS: BODY FLUID ALBUMIN 1.4 g/dL (()); BODY FLUID AMYLASE 51 U/L (()); BODY FLUID GLUCOSE 293 mg/dL (()); BODY FLUID LDH 107 IU/L (()); BODY FLUID PROTEIN 2.7 g/dL (())
[2016-08-23 18:05] VITALS: BP 156/90
[2016-08-23 19:31] VITALS: BP 127/67
[2016-08-23 20:12] LABS: ABG SAMPLE TYPE ARTERIAL; BE(vivo) 1.6 mmol/L (-2 to +3); HCO3 27.1 mmol/L (22.0-26.0); LACTATE 1.16 mmol/L (0.5-2.0); O2(CT) 12.6 mL/dL (15.0-23.0); O2Hb 89.5 % (92.0-98.0); PCO2 46.5 mmHg (35.0-45.0); PO2 60.5 mmHg (80.0-100.0); STICK SITE L.BRACHIAL; pH 7.383 (7.360-7.450); sO2 90.7 % (92.0-98.0); tCO2 28.5 mmol/L (24.0-30.0)
[2016-08-24 04:18] VITALS: BP 132/82
[2016-08-24 07:14] VITALS: BP 139/61
[2016-08-24 10:16] LABS: ABG SAMPLE TYPE ARTERIAL; BE(vivo) 1.9 mmol/L (-2 to +3); HCO3 26.8 mmol/L (22.0-26.0); LACTATE 0.97 mmol/L (0.5-2.0); O2(CT) 12.8 mL/dL (15.0-23.0); O2Hb 95.1 % (92.0-98.0); PCO2 42.9 mmHg (35.0-45.0); PO2 83.8 mmHg (80.0-100.0); pH 7.413 (7.360-7.450); sO2 96.4 % (92.0-98.0); tCO2 28.1 mmol/L (24.0-30.0)
[2016-08-24 10:17] LABS: STICK SITE L.RADIAL
[2016-08-24 10:18] LABS: ABG COMMENT NO COMPLICATIONS
[2016-08-24 16:56] VITALS: BP 142/76
[2016-08-24 19:39] VITALS: BP 142/83
[2016-08-25 03:35] VITALS: BP 156/70
[2016-08-25 05:43] LABS: HEMATOCRIT 25.8 % (37.0-47.0); HEMOGLOBIN 8.5 gm/dL (12.0-15.0); MCH 33.8 pg (26.0-34.0); MCHC 33.1 % (28.0-37.0); RBC 2.53 mil/uL (4.20-5.00); RDW 17.9 % (10.5-14.5); WBC 8.4 thou/uL (4.0-11.0)
[2016-08-25 06:18] LABS: CALCIUM 8.3 mg/dL (8.5-10.1); CREATININE 2.4 mg/dL (0.6-1.3); POTASSIUM 3.9 mmol/L (3.5-5.1)
[2016-08-25 07:21] VITALS: BP 162/71
[2016-08-25 09:09] LABS: CHOLESTEROL 165 mg/dL (<200); HDL CHOLESTEROL 27 mg/dL (>40); LDL CHOLESTEROL 113 mg/dL (<100); TC:HDL 6.1 Ratio (Not establshd); TRIGLYCERIDE 126 mg/dL (<150); VLDL 25 mg/dL (<40)
[2016-08-25] MEDS ORDERED: HYDROCODONE-AP1 EAC6 PO (11:16)
[2016-08-25] MEDS ORDERED: HEPARIN SO5000 UNIT/ SUBQ (11:16)
[2016-08-25 11:17] VITALS: BP 162/70
[2016-08-25] MEDS ORDERED: AMOX TR-K CLV1 EAC3 PO (11:21)
[2016-08-25] MEDS ORDERED: ULTRAM 50MG TAB50 MG PO (11:34)
[2016-08-25] MEDS ORDERED: HYDROCODON-ACE1 EAC7 PO (11:34)
[2016-08-25 14:12] LABS: FOLIC ACID > 19.9 ng/mL (>3.0)
[2016-08-26] MEDS ORDERED: ASPIR 8181 MG PO (18:35)
[2016-08-26] MEDS ORDERED: METOLAZONE 2.52.5 M1 PO (18:51)
[2016-09-08] MEDS ORDERED: ASPIR 8181 MG PO (11:02)
== END 2016-08-25 13:01 | DRG 177 ==
LOC: ER 21:06 → EROBS 22:18 → ICU 22:18 → 4W 08-19 22:24
PROVIDERS: Emergency Medicine; Family Medicine; Hospitalist; Internal Medicine Nephrology; Internal Medicine Pulmonary Disease; Nurse Practitioner Family; Psychiatry & Neurology Neurology
DX: J69.0 Pneumonitis due to inhalation of food and vomit (principal); I50.23 Acute on chronic systolic (congestive) heart failure; J96.02 Acute respiratory failure with hypercapnia; N18.6 End stage renal disease; N17.0 Acute kidney failure with tubular necrosis; J96.01 Acute respiratory failure with hypoxia; K85.90 Acute pancreatitis without necrosis or infection, unspecified; G93.41 Metabolic encephalopathy; I42.9 Cardiomyopathy, unspecified; I13.11 Hypertensive heart and chronic kidney disease without heart failure, with stage 5 chronic kidney disease, or end stage renal disease; E46 Unspecified protein-calorie malnutrition; J90 Pleural effusion, not elsewhere classified; E11.319 Type 2 diabetes mellitus with unspecified diabetic retinopathy without macular edema; E11.39 Type 2 diabetes mellitus with other diabetic ophthalmic complication; H40.9 Unspecified glaucoma; E11.22 Type 2 diabetes mellitus with diabetic chronic kidney disease; E11.40 Type 2 diabetes mellitus with diabetic neuropathy, unspecified; K58.9 Irritable bowel syndrome, unspecified; E78.5 Hyperlipidemia, unspecified; I27.2 Other secondary pulmonary hypertension; D53.9 Nutritional anemia, unspecified; E03.9 Hypothyroidism, unspecified; R74.0 Nonspecific elevation of levels of transaminase and lactic acid dehydrogenase [LDH]; G47.33 Obstructive sleep apnea (adult) (pediatric); H54.8 Legal blindness, as defined in USA; F39 Unspecified mood [affective] disorder; D63.1 Anemia in chronic kidney disease; E11.65 Type 2 diabetes mellitus with hyperglycemia; Z99.2 Dependence on renal dialysis; Z79.84 Long term (current) use of oral hypoglycemic drugs; Z95.810 Presence of automatic (implantable) cardiac defibrillator; Z88.2 Allergy status to sulfonamides; Z88.8 Allergy status to other drugs, medicaments and biological substances; Z88.1 Allergy status to other antibiotic agents; Z98.890 Other specified postprocedural states; Z83.3 Family history of diabetes mellitus; Z79.82 Long term (current) use of aspirin; Z79.899 Other long term (current) drug therapy; Z68.25 Body mass index [BMI] 25.0-25.9, adult
CPT/HCPCS: 10045; 10203; 32100

== ENCOUNTER 2016-08-22 14:59 | Inpatient (IN) | payer OTHER ==
[~2016-08-22] VITALS: Ht 160 cm; Wt 53.5 kg
--- NOTE | ~2016-08-22 | PLAN ---
[facility] [address] [place] [address] [place] [address] REHAB UNIT PLAN OF CARE Name: PIPPA DOWNS Fernando Room #: 514-P [facility] IN M.R.#: [id number] Admission: 08/25/16 Attend Phys: Kyaw Cross MD Discharge: 08/30/16 Date of : 62 Report #: [id number] THIS REPORT FOR: //name// CC: Yuliana Cross ADDENDUM The patient did miss some therapy minutes on 08/30/2016, secondary to dialysis. <ELECTRONICALLY SIGNED> By: Kyaw Cross MD 09/05/16 1617 1041 1126 Kyaw Cross MD /nt
--- NOTE | ~2016-08-22 | H ---
[facility] [place] [address] HISTORY AND PHYSICAL Name: PIPPA DOWNS Room #: 514-P [facility] IN M.R.#: [id number] Admission: 08/25/16 Attend Phys: Kyaw Cross MD Discharge: 08/30/16 Date of : 62 Report #: [id number] THIS REPORT FOR: //name// CC: Yuliana Cross DATE OF SERVICE: 08/25/2016 CHIEF COMPLAINT: Mobility and self-care deficits due to encephalopathy. HISTORY OF PRESENT ILLNESS: The patient is a pleasant 56-year-old right-hand dominant female who was admitted to [facility] on 08/16/2016 with multiple medical issues. On admission, she was found to be acutely confused without focal weakness. She was diagnosed with a metabolic encephalopathy. She is felt to be at high risk for strokes. She is currently receiving hemodialysis for acute renal failure. She has had diabetes for approximately 13 years and records indicate that she has had poor control of her diabetes. She also has a history of congestive heart failure with a low ejection fraction of 20-25%. She has had a great deal of difficulty with her mobility and her ability to perform activities of daily living. Secondary to a decline in her overall function and the need for rehabilitation, management of her complex medical condition is outlined above. She is now being admitted to the rehabilitation unit for comprehensive therapies. NOTE: I am covering for Dr. Kyaw Cross and therefore completing this history and physical for him. PAST MEDICAL HISTORY: As stated above. Also, pertinent for end-stage renal disease requiring hemodialysis, hypertension, hyperlipidemia, mood disorder, obstructive sleep apnea, pulmonary hypertension, blindness of her left eye and legal blindness of her right eye. Medications reviewed. I note that she is receiving clonazepam, please see the written documentation of this history and physical for full details. ALLERGIES: BACTRIM. FUNCTIONAL HISTORY: Before admission, she states that she used a rolling walker to ambulate. She does not drive. SOCIAL HISTORY: She lives with her ex- in their own home. They have several steps to get in the house and they do have steps inside the house as [facility] [address] [place] [address] HISTORY AND PHYSICAL Name: PIPPA DOWNS Room #: 514-P [facility] IN ..#: [id number] Admission: 08/25/16 Attend Phys: Kyaw Cross MD Discharge: 08/30/16 Date of : 62 Report #: [id number] well. REVIEW OF SYSTEMS: As above. Specifically, she denies chest pain and shortness of breath. She has poor vision. She denies difficulty with her hearing. She does have dentures. Otherwise, the remainder of her 14-point review is negative except for what was stated above. PHYSICAL EXAMINATION: GENERAL: No acute distress, cachectic in appearance. VITAL SIGNS: Afebrile. CARDIOVASCULAR: S1, S2. LUNGS: Clear to auscultation. ABDOMEN: Soft, nontender, nondistended, positive bowel sounds. EXTREMITIES: Calves are nontender. LYMPHATICS: No cervical adenopathy. MUSCULOSKELETAL: Functionally, she is able to move her arms and legs throughout. Functional range of motion with 4/5 strength, tone within normal limits. No muscle atrophy. NEUROLOGIC AND PSYCHIATRIC: Coordination is fair. Muscle stretch reflexes are 1/4 and symmetric. Sensation is diminished in her feet bilaterally. She is alert, able to answer my questions, pleasant and cooperative with the examination. IMPRESSION: Mobility and self-care deficits in a 56-year-old right-hand dominant female secondary to: 1. Metabolic encephalopathy. 2. End-stage renal disease, on hemodialysis. 3. Congestive heart failure. 4. Prior auto-implantable cardioverter defibrillator. 5. Obstructive sleep apnea. 6. Pulmonary hypertension. 7. Legal blindness. 8. Cardiomyopathy. 9. Acute hypercapnic respiratory failure, resolved. PLAN: 1. Admit to the rehabilitation unit for comprehensive therapies. 2. Please see the plan of care, post-admission physician evaluation and the admission orders for full details of her rehabilitation care plan. 3. Discussed the inpatient rehabilitation program with her and her family in detail and they are in agreement. 4. Developed the inpatient rehabilitation plans with her interdisciplinary therapy team. 5. Weekly team conferences to be held to discuss her progress. 6. Dr. Kyaw Cross will assume care of the patient when he returns on 08/29/[place] [address] HISTORY AND PHYSICAL Name: PIPPA DOWNS Room #: 514-P [facility] IN M.R.#: [id number] Admission: 08/25/16 Attend Phys: Kyaw Cross MD Discharge: 08/30/16 Date of : 62 Report #: [id number] POST ADMISSION PHYSICIAN EVALUATION: A post-admission physician evaluation has been completed. The patient's preadmission screening was reviewed in its entirety. The current clinical status is supported by the information contained within it. The patient is an appropriate candidate to undergo comprehensive inpatient rehabilitation consisting of daily PT, OT and speech 3 hours a day for 5 days a week. Furthermore, nothing has changed since the preadmission screen was completed to suggest that the patient would not be able to tolerate or benefit from the rehabilitation program. It is my opinion that inpatient rehabilitation rather than shelter is more appropriate for the patient due to multiple medical needs, requiring comprehensive followup care. The patient is at risk of clinical complications during participation in rehabilitation due to the following: Adverse medical conditions, congestive heart failure, end-stage renal disease requiring hemodialysis, prior AICD placement, obstructive sleep apnea, pulmonary hypertension, legal blindness. My plan to manage these conditions, which could impact her participation in rehabilitation is to consult Internal Medicine and Nephrology to follow her closely during her rehabilitation course. INDIVIDUALIZED PLAN OF CARE: SUMMARIZATION OF FINDINGS: The patient is receiving inpatient rehabilitation due to the following functional impairments: 1. Metabolic encephalopathy. 2. Generalized weakness. 3. Respiratory failure, improved. 4. Cardiomyopathy. 5. Diabetes mellitus with evidence of peripheral neuropathy. IDENTIFIED INTERVENTIONS: Physical therapy, occupational therapy, and speech therapy to address mobility, self-care deficits, communication and cognitive and swallowing impairments, physical medicine and rehabilitation. We will provide management of rehabilitation care plan. Internal Medicine will follow for multiple medical issues. Rehabilitation nursing care 24 hours a day for care needs. rn women services for discharge planning and medical equipment needs. Dietitian consultation for nutritional purposes. ESTIMATED LENGTH OF STAY: Approximately 14 days, which is in agreement with the preadmission screen. ANTICIPATED FUNCTIONAL OUTCOME: Modified independent with mobility and self-care skills. This is a realistic goal based on the previous level of function and progress thus far with therapies. [facility] [address] [place] [address] HISTORY AND PHYSICAL Name: PIPPA DOWNS Room #: 514-P [facility] IN [facility]#: [id number] Admission: 08/25/16 Attend Phys: Kyaw Cross MD Discharge: 08/30/16 Date of : 62 Report #: [id number] ANTICIPATED DISCHARGE DESTINATION: Home with family. She will likely need home health services at that time. Medical prognosis is good. She will continue to follow with Internal Medicine and Nephrology. Anticipated therapies include physical therapy, occupational therapy, speech therapy 3 hours a day 5 days a week for an anticipated duration of 14 days. SUMMARIZATION OF TREATMENT PLAN: The patient will continue to receive an inpatient rehabilitation program as outlined above in an effort to improve her overall function and return home at a modified independent level within 14 days. <ELECTRONICALLY SIGNED> By: Kyaw Cross MD 09/04/16 1122 1456 1607 Joe Campuzano DO /nt
--- NOTE | ~2016-08-22 | HC ---
[facility] [place] [address] CONSULTATION Name: PIPPA DOWNS Room #: 514-P [facility] IN .R.#: [id number] Admission: 08/25/16 Attend Phys: Kyaw Cross MD Discharge: 08/30/16 Date of : 62 Report #: [id number] THIS REPORT FOR: //name// CC: Yuliana Cross DATE OF SERVICE: 08/29/2016 ATTENDING PHYSICIAN: Kyaw Cross MD. AIRPLANE TECHNICIAN: Bassam Forrester, PhD. CLINICAL PRESENTATION: The patient is a 56-year-old female admitted to the [facility] for a comprehensive inpatient rehabilitation program to improve functional mobility and activities of daily living and self-care and mental status secondary to an encephalopathy from acute hypercapnic respiratory failure. The patient was admitted to the hospital confused and disoriented without focal weakness. She is reported to have a history of congestive heart failure with low ejection fraction. Difficulty with mobility and ability to perform activities of daily living had been described. 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 A complete description of her medical condition, history and medications can be found in her medical record. Neuropsychological consultation was requested to provide assistance in the assessment of cognitive and emotional status and to provide recommendations and services. Prior to this most recent admission, she was living independently with the assistance of an ex- and a daughter in her home. She has 6 children. She is a high school graduate with a 2-year associate of arts degree. 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 TECHNIQUES UTILIZED: Clinical interview, review of medical records, staff consultation and behavioral observation, mini mental status exam 2 standard version, and verbal fluency assessment (letter and category). EXAMINATION FINDINGS: The patient was alert and oriented during the assessment. There is no report of auditory or visual hallucinations. She does not present with aphasia. She denied subjective feelings of anxiety or depression and does not report difficulty with memory, concentration, or word finding. The patient provided a consistent history of events surrounding her hospitalization. Although she is described as having been confused and disoriented at her initial admission. [address] [address] CONSULTATION Name: PIPPA DOWNS Room #: 514-P [facility] IN [facility].#: [id number] Admission: 08/25/16 Attend Phys: Kyaw Cross MD Discharge: 08/30/16 Date of : 62 Report #: [id number] Her performance was within normal limits on the MMSE 2 standard version. She does score of 29 of 30 on the MMSE 2 standard version. The patient missed 1 on a copying test that was primarily influenced by visual disability. Her performance in letter fluency was within normal limits with a raw score of 45 and a T score of 52. Category fluency was within normal limits with a raw score of 20 and T score of 49. DIAGNOSTIC IMPRESSION AND SUMMARY: The patient initially presented with delirium with a suspicion in regard to memory deficits from the encephalopathy and concern about hypoxia. However, her performance on brief neuro behavioral status exam is within normal limits. RECOMMENDATIONS: The patient may benefit from additional assistance upon her return home that includes managing medication and aspects of her medical treatment. She does have a caregiver that is with her throughout the day and can provide additional structure to maintain safety. Thank you very much for allowing me to provide the consultation on this patient. <ELECTRONICALLY SIGNED> By: Bassam Forrester, PhD 09/14/16 [id number] Bassam Forrester, PhD /nt
[~2016-08-22 14:59] MED LIST changes: +COZAAR 25 MG TA25 M1 PO; +HUMALOG100 UNIT/1 SUBQ; +HYDROCODONE-AP1 EAC6 PO; +LANTUS100 UNIT/M SUBQ; +LEVOTHYROXIN0.025 MG PO; +NEPHROCAPS SOFT1 CAP PO; +PROCRIT20000 UNIT SUBQ
[2016-08-25] MEDS ORDERED: HYDROCODONE-AP1 EAC6 PO (11:16)
[2016-08-25] MEDS ORDERED: HEPARIN SO5000 UNIT/ SUBQ (11:16)
[2016-08-25] MEDS ORDERED: AMOX TR-K CLV1 EAC3 PO (11:21)
[2016-08-25] MEDS ORDERED: HYDROCODON-ACE1 EAC7 PO (11:34)
[2016-08-25] MEDS ORDERED: ULTRAM 50MG TAB50 MG PO (11:34)
[2016-08-25 16:51] VITALS: BP 146/70
[2016-08-26 06:35] VITALS: BP 152/75
[2016-08-26 08:25] VITALS: BP 160/76
[2016-08-26 17:25] VITALS: BP 172/96
[2016-08-26] MEDS ORDERED: ASPIR 8181 MG PO (18:35)
[2016-08-26] MEDS ORDERED: METOLAZONE 2.52.5 M1 PO (18:51)
[2016-08-26 21:00] VITALS: BP 153/84
[2016-08-27 05:03] LABS: HEMATOCRIT 26.3 % (37.0-47.0); HEMOGLOBIN 8.3 gm/dL (12.0-15.0); MCH 33.2 pg (26.0-34.0); MCHC 31.7 % (28.0-37.0); MCV 104.8 fL (80.0-100.0); RBC 2.51 mil/uL (4.20-5.00); RDW 17.6 % (10.5-14.5); WBC 10.4 thou/uL (4.0-11.0)
[2016-08-27 05:13] LABS: CALCIUM 8.6 mg/dL (8.5-10.1); CREATININE 2.8 mg/dL (0.6-1.3); POTASSIUM 4.4 mmol/L (3.5-5.1)
[2016-08-27 05:27] VITALS: BP 136/59
[2016-08-27 16:00] VITALS: BP 142/76
[2016-08-28 05:47] VITALS: BP 140/73
[2016-08-28 15:30] VITALS: BP 86/44
[2016-08-29 05:24] VITALS: BP 134/65
[2016-08-29 08:00] VITALS: BP 126/60
[2016-08-30 05:36] VITALS: BP 117/54
[2016-08-30 10:00] VITALS: BP 162/83
[2016-08-30 11:09] VITALS: BP 162/82
[2016-08-30 12:35] VITALS: BP 162/82
[2016-08-30 15:02] VITALS: BP 162/82
[2016-09-08] MEDS ORDERED: ASPIR 8181 MG PO (11:02)
== END 2016-08-30 15:05 | disposition home health service (06) | DRG 70 ==
PROVIDERS: Family Medicine
PROC: 5A1D60Z (ICD-10-PCS; principal; 2016-08-28)
DX: G93.41 Metabolic encephalopathy (principal); N18.6 End stage renal disease; J96.02 Acute respiratory failure with hypercapnia; I42.9 Cardiomyopathy, unspecified; J90 Pleural effusion, not elsewhere classified; I13.2 Hypertensive heart and chronic kidney disease with heart failure and with stage 5 chronic kidney disease, or end stage renal disease; I50.9 Heart failure, unspecified; G47.33 Obstructive sleep apnea (adult) (pediatric); H54.8 Legal blindness, as defined in USA; I27.2 Other secondary pulmonary hypertension; E78.5 Hyperlipidemia, unspecified; F39 Unspecified mood [affective] disorder; R41.0 Disorientation, unspecified; E11.319 Type 2 diabetes mellitus with unspecified diabetic retinopathy without macular edema; K58.9 Irritable bowel syndrome, unspecified; E11.40 Type 2 diabetes mellitus with diabetic neuropathy, unspecified; H40.9 Unspecified glaucoma; R91.1 Solitary pulmonary nodule; R53.81 Other malaise; Z88.1 Allergy status to other antibiotic agents; Z79.899 Other long term (current) drug therapy; Z99.2 Dependence on renal dialysis; Z86.74 Personal history of sudden cardiac arrest; Z79.4 Long term (current) use of insulin; Z95.810 Presence of automatic (implantable) cardiac defibrillator; Z79.82 Long term (current) use of aspirin
CPT/HCPCS: 10112; 32100

== ENCOUNTER → 2016-11-16 | Outpatient (CLI) | payer OTHER ==
[~2016-11-16] MED LIST changes: +AMOX TR-K CLV1 EAC3 PO; +ASPIR 8181 MG PO; +HEPARIN SO5000 UNIT/ SUBQ; +MEGESTROL ACETA40 MG PO; +RENVELA800 MG PO; +ULTRAM 50MG TAB50 MG PO
== END ==
LOC: RAD 13:02
DX: J18.9 Pneumonia, unspecified organism (principal); J90 Pleural effusion, not elsewhere classified; R06.02 Shortness of breath

== ENCOUNTER 2016-11-18 17:04 | Inpatient (IN) | payer OTHER ==
[~2016-11-18] VITALS: Ht 160 cm; Wt 49.0 kg
--- NOTE | ~2016-11-18 | HC ---
[facility] [place] [address] CONSULTATION Name: PIPPA DOWNS Room #: 312-P ADM IN M.R.#: [id number] Admission: 11/18/16 Attend Phys: Eric Grimes DO Discharge: Date of : 62 Report #: [id number] THIS REPORT FOR: //name// CC: Yuliana Grimes REASON FOR CONSULTATION: End-stage renal disease. HISTORY OF PRESENT ILLNESS: The patient is well known to our service, longstanding diabetes mellitus with triopathy, on dialysis now for several months. She had extreme volume overload at the start of her treatments, but this has improved nicely. She suffered severe heartburn, missed her dialysis on Sunday, had multiple complaints and eventually ended up in the Emergency Room yesterday and was admitted to the hospital. She apparently also had some nausea and vomiting but because of the missed dialysis also had hyperkalemia. PAST MEDICAL HISTORY: End-stage renal disease, on dialysis, peripheral neuropathy, retinopathy with very poor vision, recent pneumonia in August of this year with left total effusion requiring thoracentesis, chronic ____ complaints. REVIEW OF SYSTEMS: GENERAL: She feels poorly. SKIN: Unremarkable. EYES: Vision is quite poor, particularly on the left. ENT: Hearing okay, swallows okay. Denies mouth sores or ulcers. ENDOCRINE: Positive for the diabetes. RESPIRATORY: Denies shortness of breath at the current time, no pleuritic pain. CARDIAC: She had some transient substernal chest pain yesterday along with multiple other pains and complaints which are essentially chronic and almost daily for this patient. GASTROINTESTINAL: Intermittent nausea and vomiting, difficulty eating. GENITOURINARY: No dysuria or hematuria. NEUROLOGIC: Does get around with a walker, some numbness in the feet. FAMILY HISTORY: Noncontributory. SOCIAL HISTORY: No cigarettes or alcohol. Lives at home with her ex-. PHYSICAL EXAMINATION: VITAL SIGNS: This is a chronically ill-appearing patient. She is eating her breakfast and is in no distress this morning. SKIN: Unremarkable. SKELETAL: Well-developed, well-nourished fistula in the right upper arm. HEENT: Extraocular movements full. Vision poor. Hearing intact. Mucous membranes are moist. Tongue, buccal mucosa benign. NECK: Supple. [address] [address] CONSULTATION Name: PIPPA DOWNS Room #: 312[facility] IN M.R.#: [id number] Admission: 11/18/16 Attend Phys: Eric Grimes DO Discharge: Date of : 62 Report #: [id number] CHEST: Shows slight diminished breath sounds at the left base. HEART: Regular. ABDOMEN: Distended, possibly some fluid. EXTREMITIES: Show no edema. LABORATORY DATA: Potassium 5.7. ASSESSMENT AND PLAN: 1. End-stage renal disease, potassium is up, she missed the treatment. She would likely benefit from some dialysis today and again tomorrow. Orders are written. 2. Swollen abdomen with discomfort. I will check an abdominal sonogram. She may have some ascites. 3. Decreased left ventricular ejection fraction with history of automatic implantable cardioverter-defibrillator placement. 4. Diabetes mellitus with triopathy. 5. Noncompliance and misses dialysis. By: 0900 2216 Monroe Gamboa MD /nt
--- NOTE | ~2016-11-18 | EKG ---
[place] [address] [facility] [place] [address] ELECTROCARDIOGRAM REPORT Name: PIPPA DOWNS Room #: 312-P ADM IN M.R.#: [id number] Admission: 11/18/16 Attend Phys: Eric Grimes DO Discharge: Date of : 62 Report #: [id number] THIS REPORT FOR: //name// [facility] ED Test Date: 2016-11-18 Test Time: 17:12:54 Pat Name: PIPPA DOWNS Department: Room: [facility] Gender: F Sleep Tech: MZBRAD : 1960 Requested By: Purvi Chang Order Number: [id number] MD: Blair De León Measurements Intervals [place] Rate: 97 P: 20 AK: 117 QRS: 7 QRSD: 84 T: 144 QT: 345 QTc: 439 Interpretive Statements Sinus rhythm Borderline short AK interval Nonspecific ST and T wave abnormality Compared to ECG 09/08/2016 07:06:47 no significant change was found Electronically Signed On 11-19-2016 11:48:58 CDT by Blair De León [email or web address] <ELECTRONICALLY SIGNED> By: Blair De León MD, [facility] 11/19/16 1148 171 171 Blair De León MD, [facility] /EPI
--- NOTE | ~2016-11-18 | CNG ---
[facility] [place] [address] CYTO-NONGYN REPORT PROCEDURE Name: PIPPA DOWNS Room #: 312-P DIS IN M.R.#: [id number] Admission: 11/18/16 Date of : 62 Discharge: 11/20/16 Report #: [id number] Path Case #: [id number] CYTOPATHOLOGY REPORT COLLECTION DATE: 11/20/2016 RECEIVED DATE: 11/20/2016 SUBMITTING PHYS: Violet Mancia OTHER PHYS: Dr. Eric Soria CLINICAL HISTORY: Chest pain SPECIMEN(S) RECEIVED: A.Abdominal fluid * * * * * * * * * * * * FINAL DIAGNOSIS: A. Abdominal fluid: - No malignant epithelial cells identified. - Reactive mesothelial cells and predominantly chronic inflammatory cells including scattered small lymphocytes identified. PATHOLOGIST: Carol Shane M.D. REPORT ELECTRONICALLY SIGNED BY: Carol Shane M.D. DATE/TIME: 11/21/2016 11:58 * * * * * * * * * * * * GROSS PATHOLOGY: A. Abdominal fluid: The specimen is submitted unfixed, labeled "[place]". Received by the Cytology Department is 10 mL of yellow fluid. One ThinPrep slide and a cell block were prepared. (kg 11/20/16) MARINE FIRER(S): DENISE Green[facility] INITIAL CPT CODE(S): A; 80923, 36529 Professional services performed by [facility] at [facility] [address], [place] [address] Technical services performed by [facility] at [address] [place] [address]., [address], [place], [place] [address]. [facility] [address] [place] [address], [address] [facility] [address] [place] [address] CYTO-NONGYN REPORT PROCEDURE Name: PIPPA DOWNS Room #: 312-P [facility] IN M.R.#: [id number] Admission: 11/18/16 Date of : 62 Discharge: 11/20/16 Report #: [id number] Path Case #: [id number] [place] [address] PHONE: [phone] DIRECTOR: Antony Melton M.D. * * * END OF REPORT * * *
--- NOTE | ~2016-11-18 | HC ---
[facility] [place] [address] CONSULTATION Name: PIPPA DOWNS Room #: 312-P [facility] IN .R.#: [id number] Admission: 11/18/16 Attend Phys: Eric Grimes DO Discharge: Date of : 62 Report #: [id number] THIS REPORT FOR: //name// CC: Yuliana Grimes HISTORY OF PRESENT ILLNESS: The patient is a 56-year-old woman with a moderately severe ischemic cardiomyopathy. She has been evaluated most recently by Dr. Victor Manuel Shay in August. Her usual top case assembler is at [facility]. Due to severe left ventricular dysfunction, empiric Medtronic dual chamber ICD was placed in 2014. Around the same time, stress testing demonstrated no evidence of ischemia. The ejection fraction is in the 25 to 30% range. She now presents with several weeks of intermittent epigastric discomfort and occasional acid brash. Yesterday's episode was more severe lasting about an hour and a half. She presented to the Emergency Department and was given antacid with relief of her pain. Since being placed on antacid, she has had complete resolution of the same discomfort which she has had for several weeks. She denies orthopnea or paroxysmal nocturnal dyspnea. There have been no symptoms to suggest ICD discharge. She does have a history of coronary angiography several years ago and mild to moderate nonocclusive coronary artery disease was identified. ALLERGIES: INCLUDE BACTRIM. MEDICATIONS: Include aspirin 81 mg daily, Flomax 0.4 mg daily, sertraline 25 mg at night, eyedrops, carvedilol 12.5 mg twice daily, Synthroid 0.025 mg daily, Tradjenta 2.5 mg daily, torsemide 20 mg daily, and Megace. PAST MEDICAL HISTORY: Notable for type 2 diabetes, nonischemic cardiomyopathy, prior dual chamber ICD placement, end-stage renal disease on dialysis, anemia, pneumonia in 2017. SOCIAL HISTORY: She is a nonsmoker. FAMILY HISTORY: Unremarkable for premature coronary artery disease. REVIEW OF SYSTEMS: All systems negative except as that noted above. PHYSICAL EXAMINATION: GENERAL: A pleasant woman in no distress. VITAL SIGNS: Blood pressure is 160/80, heart rate of 90 and regular. She is afebrile, 5 feet 3 inches tall, 105 pounds. HEENT: There are neither xanthelasma, subcutaneous xanthomata, oral mucosal or digital cyanosis or kyphoscoliosis present. CHEST: Clear to auscultation and percussion. CARDIOVASCULAR: Regular rate and rhythm with a normal S1, S2. Jugular venous pressure is elevated. [facility] [address] [place] [address] CONSULTATION Name: PIPPA DOWNS Room #: 312-P [facility] IN M.R.#: [id number] Admission: 11/18/16 Attend Phys: Eric Grimes DO Discharge: Date of : 62 Report #: [id number] ABDOMEN: Soft and nontender. EXTREMITIES: Without cyanosis, clubbing, or edema. Radial pulses are 2+. NEUROLOGIC: She is alert with a nonfocal exam. LABORATORY DATA: Sodium is 133, potassium 5.7, creatinine 4.9, glucose 230. Serial cardiac enzymes are all zero. B-type natriuretic peptide greater than 35,000. White count 5.8, hemoglobin 11, hematocrit 36, platelet count 201. Recent A1c of 7.3. Chest x-ray demonstrates cardiomegaly. EKG, sinus rhythm with nonspecific ST segment abnormality. IMPRESSION: 1. Wljrw-ro-lghmate systolic heart failure, reduced ejection fraction. 2. Chest pain consistent with reflux or GI discomfort, now resolved. No evidence of IL or ischemia. 3. Hypertension. 4. Nonischemic cardiomyopathy, ejection fraction of 35% range by recent echocardiography. 5. End-stage renal disease, on hemodialysis. 6. Diabetes. 7. Hypothyroidism, on replacement. RECOMMENDATIONS: 1. Resume usual medications. 2. At this point, no additional cardiovascular testing is needed. I do not suspect ischemia or infarction as the etiology of her pain. I agree with instituting PPI therapy. The patient does have a usual and regular followup with her top case assembler through [facility]. We will be available as issues or problems arise. Thank you for asking me to participate in her care. <ELECTRONICALLY SIGNED> By: Blair De León MD, FACC 11/20/16 0825 1104 2329 Blair De León MD, FACC /nt
[~2016-11-18 17:04] MED LIST changes: -MEGESTROL ACETA40 MG PO; -RENVELA800 MG PO
[2016-11-18 17:05] VITALS: BP 173/90
[2016-11-18 17:16] LABS: HEMATOCRIT 37.8 % (37.0-47.0); HEMOGLOBIN 12.3 gm/dL (12.0-15.0); MCH 33.7 pg (26.0-34.0); MCHC 32.6 g/dL (28.0-37.0); MCV 103.6 fL (80.0-100.0); RBC 3.65 mil/uL (4.20-5.00); RDW 15.2 % (10.5-14.5); WBC 6.3 thou/uL (4.0-11.0)
[2016-11-18] MEDS ORDERED: MEGESTROL ACETA40 MG PO (18:00)
[2016-11-18 18:46] LABS: ALBUMIN 2.8 g/dL (3.4-5.0); ALKALINE PHOSPHATASE 358 U/L (46-116); ANION GAP 10 mmol/L (7-16); BUN 47 mg/dL (7-18); CALCIUM 9.5 mg/dL (8.5-10.1); CHLORIDE 99 mmol/L (98-107); CO2 25 mmol/L (21-32); CREATININE 4.8 mg/dL (0.6-1.0); GLUCOSE 196 mg/dL (74-106); POTASSIUM 5.5 mmol/L (3.5-5.1); SGOT 20 U/L (15-37); SGPT 12 U/L (30-65); SODIUM 134 mmol/L (136-145); TOTAL PROTEIN 7.4 g/dL (6.4-8.2); TROPONIN-I < 0.04 ng/mL (<0.04-0.07)
[2016-11-18 20:10] VITALS: BP 168/72
[2016-11-18 20:20] VITALS: BP 190/99
[2016-11-18 20:25] VITALS: BP 190/99
[2016-11-18] MEDS ORDERED: HYDROCODONE-AP1 EAC6 PO (20:51)
[2016-11-18] MEDS ORDERED: RENVELA800 MG PO (21:11)
[2016-11-18 23:25] VITALS: BP 153/79
[2016-11-19 00:32] LABS: ABSOLUTE NEUTROPHILS 4.3 thou/uL (1.4-8.2); BASOPHILS 0.6 % (0.0-2.0); EOSINOPHILS 0.5 % (0.0-3.0); HEMATOCRIT 36.3 % (37.0-47.0); HEMOGLOBIN 11.8 gm/dL (12.0-15.0); LYMPHOCYTES 15.6 % (24.0-44.0); MANUAL DIFF NO; MCH 33.5 pg (26.0-34.0); MCHC 32.5 g/dL (28.0-37.0); MCV 103.1 fL (80.0-100.0); MONOCYTES 8.8 % (1.0-8.0); PLATELET COUNT 201 thou/uL (150-400); POLYS 74.5 % (36.0-66.0); RBC 3.52 mil/uL (4.20-5.00); RDW 15.2 % (10.5-14.5); WBC 5.8 thou/uL (4.0-11.0)
[2016-11-19 00:49] LABS: BUN 48 mg/dL (7-18); CALCIUM 8.8 mg/dL (8.5-10.1); CO2 26 mmol/L (21-32); CREATININE 4.9 mg/dL (0.6-1.0); GLUCOSE 260 mg/dL (74-106); TROPONIN-I < 0.04 ng/mL (<0.04-0.07)
[2016-11-19 01:06] LABS: CHLORIDE 98 mmol/L (98-107); POTASSIUM 5.7 mmol/L (3.5-5.1); SODIUM 133 mmol/L (136-145)
[2016-11-19 01:09] LABS: ANION GAP 9 mmol/L (7-16)
[2016-11-19 03:35] VITALS: BP 163/90
[2016-11-19 08:10] VITALS: BP 169/89
[2016-11-19 12:55] VITALS: BP 172/95
[2016-11-19 15:36] VITALS: BP 181/95
[2016-11-19 20:10] VITALS: BP 181/92
[2016-11-20 04:12] VITALS: BP 134/72
[2016-11-20 06:18] LABS: HEMATOCRIT 32.4 % (37.0-47.0); HEMOGLOBIN 10.7 gm/dL (12.0-15.0); MCH 34.5 pg (26.0-34.0); MCHC 33.2 g/dL (28.0-37.0); RBC 3.11 mil/uL (4.20-5.00); RDW 15.4 % (10.5-14.5); WBC 5.2 thou/uL (4.0-11.0)
[2016-11-20 06:38] LABS: ALBUMIN 2.4 g/dL (3.4-5.0); CALCIUM 8.5 mg/dL (8.5-10.1); CREATININE 3.4 mg/dL (0.6-1.0); PHOSPHORUS 4.4 mg/dL (2.5-4.9); POTASSIUM 4.4 mmol/L (3.5-5.1)
[2016-11-20 12:14] VITALS: BP 184/96
[2016-11-20 14:45] LABS: % SATURATION 21 % (20-39); INR 1.3; IRON 43 ug/dL (50-170); PROTIME 13.4 Seconds (9.3-11.4); TIBC 207 ug/dL (250-450); UIBC 164 ug/dL
[2016-11-20 16:15] VITALS: BP 173/88
[2016-11-20 16:53] LABS: BF NUCLEATED CELLS 441; BF RBC 2063; TOTAL VOLUME 60 mL
[2016-11-20 16:54] LABS: CLARITY HAZY; COLOR YELLOW
[2016-11-20 17:53] VITALS: BP 173/88
[2016-11-20 20:02] LABS: BF COMMENTS MONOCYTES 2; BF MACROPHAGE 52; BF NEUTROPHILS 2; MANUAL DIFF YES
[2016-11-20 20:06] LABS: IgG 1708 mg/dL (700-1600)
[2016-11-21 12:08] LABS: CERULOPLASMIN 35.5 mg/dL (19.0-39.0)
[2016-11-22 09:09] LABS: MITOCHONDRIAL ANTIBODY 14.2 Units (0.0-20.0)
[2016-11-22 17:10] LABS: BODY FLUID ALBUMIN 2.2 g/dL (()); BODY FLUID AMYLASE 36 U/L (()); BODY FLUID GLUCOSE 205 mg/dL (()); BODY FLUID LDH 125 IU/L (()); BODY FLUID PROTEIN 4.3 g/dL (())
== END 2016-11-20 18:30 | disposition home or self-care (01) | DRG 291 ==
LOC: ER 17:04 → 3N 17:56 → EROBS 17:56 → 3N 20:07
PROVIDERS: Emergency Medicine; Family Medicine; Internal Medicine Nephrology; Nurse Practitioner Adult Health; Physician Assistant; Specialist
PROC: 5A1D60Z (ICD-10-PCS; 2016-11-19)
PROC: 0W9G3ZZ Drainage of Peritoneal Cavity, Percutaneous Approach (ICD-10-PCS; principal; 2016-11-20)
PROC: BH49ZZZ Ultrasonography of Abdominal Wall (ICD-10-PCS; principal; 2016-11-20)
DX: I13.2 Hypertensive heart and chronic kidney disease with heart failure and with stage 5 chronic kidney disease, or end stage renal disease (principal); J18.9 Pneumonia, unspecified organism; I50.23 Acute on chronic systolic (congestive) heart failure; N18.6 End stage renal disease; J90 Pleural effusion, not elsewhere classified; R18.8 Other ascites; I42.8 Other cardiomyopathies; E11.319 Type 2 diabetes mellitus with unspecified diabetic retinopathy without macular edema; Z96.89 Presence of other specified functional implants; K58.9 Irritable bowel syndrome, unspecified; E78.5 Hyperlipidemia, unspecified; E11.22 Type 2 diabetes mellitus with diabetic chronic kidney disease; E11.42 Type 2 diabetes mellitus with diabetic polyneuropathy; E03.9 Hypothyroidism, unspecified; G89.29 Other chronic pain; K21.9 Gastro-esophageal reflux disease without esophagitis; D64.9 Anemia, unspecified; M54.9 Dorsalgia, unspecified; K59.00 Constipation, unspecified; R12 Heartburn; Z99.2 Dependence on renal dialysis; Z88.2 Allergy status to sulfonamides; Z88.1 Allergy status to other antibiotic agents; Z88.8 Allergy status to other drugs, medicaments and biological substances; Z91.19 Patient's noncompliance with other medical treatment and regimen; Z79.82 Long term (current) use of aspirin; Z79.899 Other long term (current) drug therapy
CPT/HCPCS: 10096; 32100

== ENCOUNTER → 2016-12-07 | Outpatient (CLI) | payer OTHER ==
[~2016-12-07] MED LIST changes: +MEGESTROL ACETA40 MG PO; +RENVELA800 MG PO
== END ==
LOC: RAD 14:39
DX: J90 Pleural effusion, not elsewhere classified (principal); J18.9 Pneumonia, unspecified organism

== ENCOUNTER → 2016-12-19 | Outpatient (CLI) | payer OTHER | LOC: ULTRA 02:16 | DX: J90 Pleural effusion, not elsewhere classified (principal); R18.8 Other ascites ==

== ENCOUNTER → 2017-01-23 | Outpatient (CLI) | payer OTHER | LOC: ULTRA 12:43 | DX: R18.0 Malignant ascites (principal); I13.0 Hypertensive heart and chronic kidney disease with heart failure and stage 1 through stage 4 chronic kidney disease, or unspecified chronic kidney disease; E11.22 Type 2 diabetes mellitus with diabetic chronic kidney disease; N18.9 Chronic kidney disease, unspecified; I50.9 Heart failure, unspecified; E11.40 Type 2 diabetes mellitus with diabetic neuropathy, unspecified; E78.5 Hyperlipidemia, unspecified; E11.319 Type 2 diabetes mellitus with unspecified diabetic retinopathy without macular edema; I25.2 Old myocardial infarction; Z95.0 Presence of cardiac pacemaker ==

== ENCOUNTER → 2017-02-20 | Outpatient (CLI) | payer OTHER | END | disposition home or self-care (01) | LOC: ULTRA 13:16 | DX: R18.8 Other ascites (principal) ==

== ENCOUNTER → 2017-03-12 | Outpatient (CLI) | payer OTHER | END | disposition home or self-care (01) | LOC: ULTRA 12:54 | DX: R18.8 Other ascites (principal) ==

== ENCOUNTER → 2017-03-23 | Outpatient (CLI) | payer OTHER | END | disposition home or self-care (01) | LOC: ULTRA 04:38 | DX: R18.8 Other ascites (principal) ==

== ENCOUNTER → 2017-06-28 | Outpatient (CLI) | payer OTHER | LOC: HYPER 08:13 | DX: L89.612 Pressure ulcer of right heel, stage 2 (principal); E11.621 Type 2 diabetes mellitus with foot ulcer; L97.411 Non-pressure chronic ulcer of right heel and midfoot limited to breakdown of skin; E11.22 Type 2 diabetes mellitus with diabetic chronic kidney disease; I13.2 Hypertensive heart and chronic kidney disease with heart failure and with stage 5 chronic kidney disease, or end stage renal disease; I50.9 Heart failure, unspecified; N18.6 End stage renal disease; E21.3 Hyperparathyroidism, unspecified; E78.5 Hyperlipidemia, unspecified; I25.10 Atherosclerotic heart disease of native coronary artery without angina pectoris; E11.39 Type 2 diabetes mellitus with other diabetic ophthalmic complication; H40.9 Unspecified glaucoma; E03.9 Hypothyroidism, unspecified; K21.9 Gastro-esophageal reflux disease without esophagitis; F41.9 Anxiety disorder, unspecified; F32.9 Major depressive disorder, single episode, unspecified; Z99.2 Dependence on renal dialysis ==

== ENCOUNTER 2018-02-27 11:47 | Inpatient (IN) | payer OTHER ==
[~2018-02-27] VITALS: Ht 157.5 cm; Wt 45.6 kg
--- NOTE | ~2018-02-27 | HC ---
[facility] [place] [address] CONSULTATION Name: PIPPA DOWNS Room #: 237-P [facility] IN [facility]#: [id number] Admission: 02/27/18 Attend Phys: Bhaskar Joseph MD Discharge: Date of : 62 Report #: [id number] THIS REPORT FOR: //name// CC: Yuliana Joseph DATE OF SERVICE: 02/27/2018 TYPE OF REPORT: Nephrology consultation. REASON FOR CONSULTATION: End-stage renal disease, requiring peritoneal dialysis. HISTORY OF PRESENT ILLNESS: This is a 57-year-old female who presented to the Emergency Room earlier this morning. We were called this evening as she needs her peritoneal dialysis done. She presented with symptoms of pain in her chest, ribs, chest heaviness, some back pain, nausea and one episode of emesis. She told the Emergency Room, symptoms started 3 days ago. She tells me the symptoms started in the middle portion of January, which is a full month ago now. Her pain is variable in location and intensity as well as in character. The concerning factor on admission or prior to admission was that she had the chest wall heaviness. I would note that her cardiac workup was negative. From a kidney standpoint, the patient has end-stage renal disease due to diabetic nephropathy. She was on hemodialysis for a while but did not tolerate that at all. She was then converted over to peritoneal dialysis and does nocturnal cyclical peritoneal dialysis at home. She reports that has actually been going fairly well. She does 5 cycles nightly of what sounds to be 1.8 liters. Two out of every 3 nights, her prescription includes half 1.5% and half 2.5% dextrose dialysate. On the third of the 3 nights, she does all 2.5% dextrose dialysate. Her ultrafiltration nightly will arrange from 100 mL or 200 mL up to a liter. In general, it sounds like her ultrafiltration has been decreasing over the recent nights. Sugars were very high upon presentation to the Emergency Room. She states they have not been that high at home, although they have been running often times in the 200-260 range. She takes Tradjenta for her diabetes. She has not had problems with peritonitis. She has noticed some increase in edema mainly around her abdomen and her back. She tells me she is reclined to nearly flat while sleeping at night. She sleeps always on her left side but she is able to get fairly recumbent. No orthopnea or PND. She notices no increase in pain during the filling nor any emptying phase of her dialysis cycles. There has been no cloudy effluent and she has had no fevers. PAST MEDICAL HISTORY: Longstanding diabetes mellitus. Again, she developed end-stage renal disease due to diabetic nephropathy. She has a chronic cardiomyopathy. She had ejection fractions in the 20%-25% range. She has an AICD in place. She states it has not fired. She has hypothyroidism and has [facility] [address] [facility] [place] [address] CONSULTATION Name: PIPPA DOWNS Room #: 237-P [facility] IN [facility].#: [id number] Admission: 02/27/18 Attend Phys: Bhaskar Joseph MD Discharge: Date of : 62 Report #: [id number] been on replacement for that. Nutritionally, she has been a disadvantage for a long time and has been on Megace but still is not needing any additional fluid. She has history of hypertension and hyperlipidemia. MEDICATIONS: Include Nephrocaps 1 daily, carvedilol 12.5 mg b.i.d., levothyroxine 0.025 mg daily, Tradjenta 2.5 mg daily, Megace 20 mg daily, Zofran p.r.n., pantoprazole 40 mg daily, sertraline 50 mg daily, Renvela 800 mg 2 p.o. t.i.d. with meals as a phosphate binder, Travatan and Combigan eyedrops. ALLERGIES: Listed to BACTRIM and PSEUDOEPHEDRINE. SOCIAL HISTORY: The patient is and lives in [place], [place]. She is medically disabled. REVIEW OF SYSTEMS: Positive for the various pains as noted above. She has nausea. Appetite is poor. Occasional nausea. Bowel habits vary from diarrhea to constipated and really did not follow any significant pattern. She is not on a regular bowel regimen as I would expect with peritoneal dialysis patients. She denies fever. She states she gets hot and cold all the time. No evie chills. Has had the pleuritic type pain as noted above. She has dyspnea with minimal exertion, although not much more dyspnea than usual. Again, no orthopnea or PND. No pain with her peritoneal exchanges. Think she may be had some lower extremity edema. No new arthralgias or myalgias. No new skin rashes. PHYSICAL EXAMINATION: GENERAL: Elderly Ill-appearing female, looking 20-30 years older than her stated age of 57. She is awake, alert and responsive, speaking normally. VITAL SIGNS: Blood pressure 121/63, heart rate 86, temperature 98.3 and oxygen saturation 96%. HEENT: Shows pupils are 2 mm and reactive. Sclerae nonicteric. Oral mucosa is moist. NECK: Veins are not distended. No adenopathy or thyromegaly. Neck is fully supple. CHEST: Shows moderate excursion of the right lung without rales, rhonchi or wheezes. Left chest shows dullness 2/3-3/[address] from the base to the apex. The remainder of the left lung shows no rales, rhonchi or wheezes. HEART: Has a regular rate and rhythm. AICD is in place. I hear no rub. ABDOMEN: Soft and nontender. Peritoneal catheter site is clean without drainage. There is no tenderness or erythema along the peritoneal catheter tunnel. Mild amount of fluid present in the abdomen. No point tenderness, guarding or rebound. Unable to palpate organomegaly or masses. EXTREMITIES: Show extreme atrophy diffusely. She has 1+ lower extremity edema of the ankles and feet. She has absent pedal pulses. NEUROLOGICAL: She is awake[place] [address] CONSULTATION Name: PIPPA DOWNS Room #: 237-P [facility] IN [facility].#: [id number] Admission: 02/27/18 Attend Phys: Bhaskar Joseph MD Discharge: Date of : 62 Report #: [id number] LABORATORY DATA: From the Emergency Room: Sodium 132, potassium 3.5, chloride 95, bicarbonate 27, BUN 31, creatinine 5.6 and glucose 464. Total protein 5.3, albumin only 1.3, AST 14 and ALT 11. Troponin less than 0.06. White count 9.3; hemoglobin 12.6; hematocrit 38.8; white count 254,000; 88% neutrophils; 6% lymphs and 5% monocytes. RADIOLOGICAL DATA: I looked at her chest x-ray shows extensive left pleural effusion without evidence of infiltrate. Obviously has some atelectasis with the amount of fusion that is present. No right-sided pleural effusion. ASSESSMENT: 1. Multiple different pains with a new finding of a left pleural effusion. Many of her symptoms are related to this. Concern is the etiology of the pleural effusion. She has not had evidence of infection. She has a cardiomyopathy but that does not sound like it has been substantially worse recently. There is obviously concern that she has developed a leak from her peritoneal fluid up into her pleural space, although that is usually found more on the right pleural space than the left. Infection needs to be ruled out obviously. The other concern is that with her high sugars recently, she has lost her gradient for osmotic volume removal with her peritoneal dialysis and hence, she is either reabsorbed or maintain fluid that is already there. 2. End-stage renal disease. Again, she is on chronic peritoneal dialysis. This has been going fairly well, but this is certainly a concerning development. Oftentimes if there is a rent between the pleural space and the peritoneum, the peritoneal dialysis has to be stopped. The problem with that is that she did so poorly on hemodialysis and did not tolerate it with this would leave her in a very tough situation. Otherwise, her dialysis numbers are fairly adequate. Again, I am concerned that her sugars have been so high that we have lost the osmotic gradient for ultrafiltration. 3. Cardiomyopathy with prior automatic implantable cardioverter-defibrillator, has not fired at least not that she is symptomatic of. 4. Profound hypoalbuminemia. This is the worst we have ever seen it in her. Again, some of her volume retention may be more related to the , part of this is nutritional. Part of it is loss of additional albumin through her peritoneal dialysis. She has been on Megace. It has not helped much. Discussed further options. PLAN: 1. Peritoneal dialysis tonight. We will use a cycler and 5 exchanges of 1.8 liters all 2.5% dextrose. Down the line, we may have to increase her to 4.25% but would rather not do that because of the increased dextrose load. We will send for cell count and culture on her peritoneal fluid to make sure it is not infected. 2. Closely monitor intake, output and daily weights. 3. Continue tight sodium restriction. 4. Closely monitor intake, output and daily weights. [facility] [address] [place] [address] CONSULTATION Name: PIPPA DOWNS Room #: 237-P ADM IN M.R.#: [id number] Admission: 02/27/18 Attend Phys: Bhaskar Joseph MD Discharge: Date of : 62 Report #: [id number] 5. Thoracentesis. We will compare to whether this fluid looks like her peritoneal fluid. If that is the case, again, we might have to stop her peritoneal dialysis altogether, with the likelihood that she would have to go back to hemodialysis and that could be a real problem for her. 6. We will follow along closely in the care of this chronically ill patient. <ELECTRONICALLY SIGNED> By: Issa Velázquez MD 03/04/18 0729 2134 [id number] Issa Velázquez MD /nt
--- NOTE | ~2018-02-27 | HC ---
[facility] [place] [address] CONSULTATION Name: PIPPA DOWNS Room #: 207-P [facility] IN ..#: [id number] Admission: 02/27/18 Attend Phys: Bhaskar Joseph MD Discharge: Date of : 62 Report #: [id number] THIS REPORT FOR: //name// CC: Yuliana Pickering MD DATE OF SERVICE: 03/13/2018 Palliative Care Consultation REQUESTING PHYSICIAN: Dr. Pickering. CHIEF COMPLAINT: Respiratory failure. HISTORY OF PRESENT ILLNESS: The patient is a 57-year-old female who initially presented on 02/27/2018. The patient had presented at such time that she had had chest pain. She had reported a heartburn type sensation. The patient was found to have pleural effusion, which was significant in amount. She subsequently underwent thoracentesis and then unfortunately had an iatrogenic pneumothorax. She is status post chest tube, now. This was removed today. The patient has had apparently recurrent pleural effusions in the past. Pleural effusion is transudative at this time. 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 Additionally, the patient has had a code episode while in the hospital. This may have been subsequent to receiving narcotic medications in addition to just recently having anesthesia. The patient subsequently required a couple of minutes of resuscitation and has also required intubation post this episode and had been extubated after this. She has severe cardiomyopathy with an ejection fraction anywhere from 20% in the past to 30% recently. She also has pulmonary hypertension, end-stage renal disease and is currently on peritoneal dialysis with a severely low albumin level of 0.8. Additionally, the patient has been hypotensive demonstrating orthostatic hypotension, recently started on midodrine to attempt to continue her blood pressure management and to attempt to allow her to participate in therapy. She has also had poor p.o. intake and there was a thought about putting a Dobbhoff tube in today with regards to getting nutrition. PAST MEDICAL HISTORY: This is significant for multiple medical problems including the past. She has had a cardiac arrest in 2013, severe systolic heart failure, which is likely actually combined heart failure. Additionally, she had end-stage renal disease. She has been on peritoneal dialysis for intolerance of hemodialysis. She has type 2 diabetes, which has been poorly controlled in the past. 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 She has both pacemaker and implanted defibrillator device. Additionally, chronic anemia, irritable bowel syndrome, hypertension, hyperlipidemia. [facility] [address] [place] [address] CONSULTATION Name: PIPPA DONWS Room #: 207-P [facility] IN [facility]#: [id number] Admission: 02/27/18 Attend Phys: Bhaskar Joseph MD Discharge: Date of : 62 Report #: [id number] PAST SURGICAL HISTORY: She has a right upper extremity fistula, also pacemaker and AICD. SOCIAL HISTORY: Never smoker, past minimal alcohol use. Has 6 children. Two daughters are power of energy attorney at this time. MEDICATIONS: Outside, she was using sertraline, travoprost, Rosalia, Renvela, Protonix, Coreg, brinzolamide, , Coumadin, levothyroxine, linagliptin, Megace, aspirin, Flomax, clonazepam. REVIEW OF SYSTEMS: Difficult to obtain her overall review of systems. MUSCULOSKELETAL: Denies significant pain. RESPIRATORY: Does have a nasal cannula in place. Denies significant dyspnea. CARDIOVASCULAR: Denies chest pain at this time. PHYSICAL EXAMINATION: VITAL SIGNS: Temperature 36.8, pulse 82, respirations 18, blood pressure 94/38, 95% on nasal cannula. GENERAL: The patient has poor attention level and alertness alternates. She is frequently falling asleep. HEENT: Extraocular muscles appear to be intact. She has no scleral icterus. CARDIOVASCULAR: Currently, regular rate and rhythm without murmur. LUNGS: These appear to be clear anteriorly. ABDOMEN: Soft, nontender to palpation times 4. EXTREMITIES: No diffuse edema noted at this time. She has had in the past. LABORATORY DATA: Hemoglobin 11.8, white blood cell count 9.3. pH was 7.342. She had a creatinine of 5.4, potassium 5.1, sodium 134, and albumin 0.8. ASSESSMENT AND PLAN: 1. Post code for respiratory failure, acute hypoxic. At this point in time, the patient has had improvement in this overall status; however, she has significant comorbidities, which I have discussed with both the daughters and the patient herself. These lead to her being a candidate for palliative care if she were to continue peritoneal dialysis, hospice if she were to not. At this current point in time, the patient wishes to proceed with dialysis. She has had some difficulty with permitting changes to her dialysate and this may be causing her problems with controlling her heart failure as noted per nephrology. Additionally, concerning about her orthostatic hypotension at this time, it appears that midodrine has been added and increased. I am wondering if Mestinon may improve her overall management of this at 60 mg twice daily to start or if additional measures may be helpful. Family was concerned or asked about albumin transfusion. I did discuss this with Dr. Velázquez over the evening hours who reports that this would not be beneficial to the patient at this time and will be discussed with family. [facility] [place] [address] CONSULTATION Name: PIPPA DOWNS Room #: 207-P ADM IN M.R.#: [id number] Admission: 02/27/18 Attend Phys: hBaskar Joseph MD Discharge: Date of : 62 Report #: [id number] 2. Left pneumothorax. She is status post removal of thoracostomy tube. She appears to be doing well with regards to her breathing status post this removal. 3. End-stage renal disease. I appreciate the management of Nephrology at this time. I do believe that this is considerably affecting her overall status and especially concerning her very low albumin levels with peritoneal dialysis. This is overall poor prognostic factor considering this. Did discuss with family today. We will need further discussions, as the patient has been her own decision maker many times. Currently, at this point in time, she has had considerable difficulty communicating her wishes, as her attention level is poor. 4. Delirium. Again, as above, it is difficult to assess her overall wishes, although family wishes to pursue measures to see if we can raise her blood pressure to see if she can participate in therapy. If she is not able to do so in the future, it is likely that they would pursue palliative or hospice approach at that time. I did discuss this with the patient as well, although it is difficult to say how much she retained at this time. 5. Systolic heart failure. Again, this is advanced at this time. She has recurrent pleural effusions given this and also her poor nutritional status, as well as her poor albumin status, considering she also has a peritoneal dialysis as well and given that her fluid status has not been able to be well managed, as she has refused any changes in her dialysate significantly. Again, I feel that she does qualify for a palliative approach this time. We will continue to address with family, although they would like to try to see if her pressures can be improved and therapy can be pursued prior to a palliative care approach. We will continue to follow. Thank you very much for this consultation. By: 07 0535 Ward Poole DO /nt
--- NOTE | ~2018-02-27 | PATH ---
[facility] [address] [place] [address] PATHOLOGY RPT PROCEDURE Name: PIPPA DOWNS Room #: 237-P ADM IN .R.#: [id number] Admission: 02/27/18 Date of : 62 Discharge: Report #: [id number] Path Case #: [id number] Note [facility] Accession Number: [id number] TESTS RESULT FLAG UNITS REF RANGE LAB Clinician Provided Cytology Information No. of containers..01 Other (Miscellaneous) Source: CHESTFLUID DIAGNOSIS: 02 CHESTFLUID NEGATIVE FOR MALIGNANT CELLS. MESOTHELIAL CELLS ARE PRESENT. THIS INTERPRETATION INCLUDES EVALUATION OF A CELL BLOCK. Signed out by: 02 Nettie Ambriz MD, Pathologist NPI- [id number] Performed by: 03 Liberty Chavez, Fisher Spear ([facility]) Gross description: 01 20ML, YELLOW, CLOUDY /LCS FLAG LEGEND: L-Low Normal,H-High Normal,LL-Alert Low,HH-Alert High <-Panic Low,>-Panic High,A-Abnormal,AA-Critical Abnormal Performed at: [address] [place] [address] Tommy Quintero MD, [address] [address] Nettie Ambriz MD, [address] [address] Antony Melton MD, Performed at: [address] [address], [place], [place] [id number] MD Tommy Quintero MD Phone: [phone]
--- NOTE | ~2018-02-27 | PATH ---
[facility] [address] [place] [address] PATHOLOGY RPT PROCEDURE Name: PIPPA DOWNS Room #: 207- ADM IN M.R.#: [id number] Admission: 02/27/18 Date of : 62 Discharge: Report #: [id number] Path Case #: [id number] Note [facility] Accession Number: [id number] TESTS RESULT FLAG UNITS REF RANGE LAB Clinician Provided Cytology Information No. of containers..01 Other (Miscellaneous) Source: 01 PLEURAL FLUID DIAGNOSIS: 02 PLEURAL FLUID NEGATIVE FOR MALIGNANT CELLS. SCANT CELLULARITY. THIS INTERPRETATION INCLUDES EVALUATION OF A CELL BLOCK. RARE MESOTHELIAL CELLS, MACROPHAGES AND LYMPHOCYTES IDENTIFIED. Signed out by: 02 Nettie Ambriz MD, Pathologist NPI- [id number] Performed by: 03 Liberty Chavez, Rehab Services Aide ([facility]) Gross description: 01 4ML, YELLOW, CLOUDY /LCS FLAG LEGEND: L-Low Normal,H-High Normal,LL-Alert Low,HH-Alert High <-Panic Low,>-Panic High,A-Abnormal,AA-Critical Abnormal Performed at: [address] [place] [address] Tommy Quintero MD, [address] [address] Nettie Ambriz MD, [address] [address] Antony Melton MD, Performed at: [address], [place], [place] [id number] MD Tommy Quintero MD Phone: [phone]
--- NOTE | ~2018-02-27 | PATH ---
[facility] [address] [place] [address] PATHOLOGY RPT PROCEDURE Name: PIPPA DOWNS Room #: 237-P ADM IN M.R.#: [id number] Admission: 02/27/18 Date of : 62 Discharge: Report #: [id number] Path Case #: [id number] Note [facility] Accession Number: [id number] TESTS RESULT FLAG UNITS REF RANGE LAB Clinician Provided Cytology Information No. of containers..01 Other (Miscellaneous) Source: 01 SPUTUM DIAGNOSIS: 02 SPUTUM NEGATIVE FOR MALIGNANT CELLS. PULMONARY MACROPHAGES PRESENT, INDICATIVE OF LOWER RESPIRATORY TRACT SAMPLING. FUNGAL ORGANISMS MORPHOLOGICALLY CONSISTENT WITH "LINDEN" SPECIES ARE PRESENT. NORMAL BRONCHIAL CELLS ARE PRESENT. Signed out by: 02 Nettie Ambriz MD, Pathologist NPI- [id number] Performed by: 03 Cheri Cano, Gas Main Fitter ([facility]) Gross description: 01 2ML, COLORLESS, CLOUDY /LCS FLAG LEGEND: L-Low Normal,H-High Normal,LL-Alert Low,HH-Alert High <-Panic Low,>-Panic High,A-Abnormal,AA-Critical Abnormal Performed at: [address] [place] [address] Tommy Quintero MD, [address] [address] Nettie Ambriz MD, 03 [facility] [address] [address] Antony Melton MD, Performed at: [address], [place], [place] [id number] MD Tommy Quintero MD Phone: [phone]
--- NOTE | ~2018-02-27 | 2DMMODE ---
[facility] [address] [place] [address] 2 D/M-MODE ECHOCARDIOGRAM Name: YARELIPIPPA L Room #: 450-P [facility] IN [facility]#: [id number] Admission: 02/27/18 Attend Phys: Bhaskar Joseph MD Discharge: Date of : 62 Date of Service: 02/28/18 1547 Report #: [id number] THIS REPORT FOR: //name// APPROVED REPORT Study performed: 02/28/2018 13:10:27 EXAM: Comprehensive 2D, Doppler, and color-flow Echocardiogram Patient Location: Bedside Room #: [facility] Status: routine BSA: 1.46 HR: 82 bpm BP: 147/69 mmHg Other Information Study Quality: Good Indications Diabetes Cardiomyopathy Chest Pain Hypertension/HDD Pleural Effusion ICD 2D Dimensions RVDd: 33.91 mm LVEF(%): 13.57 (>50%) IVSd: 9.88 (7-11mm) LVOT Diam: 17.64 (18-24mm) LVDd: 38.71 mm PWd: 9.58 (7-11mm) Ascending Ao: 26.96 (22-36mm) LVDs: 36.42 (25-40mm) Aortic Root: 26.43 mm IVC: 21.00 mm Bernal's LVEF: 13.57 % Volumes Left Atrial Volume (Systole) Single Plane 4CH: 54.28 mL Single Plane 2CH: 59.34 mL LA ESV Index: 43.00 mL/m2 Aortic Valve AoV Peak Myron.: 1.30 m/s AO Peak Gr.: 6.77 mmHg LVOT Max P.61 mmHg LVOT Max V: 0.81 m/s SANAZ Vmax: 1.52 cm2 [facility] [address] [address] 2 D/M-MODE ECHOCARDIOGRAM Name: PIPPA DOWNS Fernando Room #: [address] [place] [address]#: [id number] Admission: 02/27/18 Attend Phys: Bhaskar Joseph MD Discharge: Date of : 62 Date of Service: 02/28/18 1547 Report #: [id number] Mitral Valve E/A Ratio: 2.4 MV Decel. Time: 178.46 ms MV E Max Myron.: 1.06 m/s MV A Myron.: 0.44 m/s MV PHT: 51.75 ms IVRT: 103.81 ms Pulmonary Valve PV Peak Myron.: 0.84 m/s PV Peak Gr.: 2.87 mmHg Pulmonary Vein P Vein S: 0.46 m/s P Vein A: 0.10 m/s P Vein D: 0.54 m/s P Vein A Dur.: 55.4 msec P Vein S/D Ratio: 0.85 Tricuspid Valve TR Peak Myron.: 3.47 m/s RAP Estimate: 10.00 mmHg TR Peak Gr.: 48.16 mmHg PA Pressure: 58.00 mmHg Left Ventricle The left ventricle is normal size. There is normal left ventricular wall thickness. Left ventricular systolic function is moderately decreased.inf wall severe hypokinesis LVEF is 30-35%. Transmitral Doppler flow pattern suggests restrictive physiology. Right Ventricle The right ventricle is normal size. Right ventricle is hypokinetic. Atria Left atrium is moderately dilated. The right atrium size is normal. Aortic Valve The aortic valve is normal in structure. Trace aortic regurgitation. There is no aortic valvular stenosis. Mitral Valve Mitral valve leaflets are mildly thickened. Trace to mild mitral regurgitation. No evidence of mitral valve stenosis. Tricuspid Valve The tricuspid valve is normal in structure. Moderate tricuspid [facility] [address] [place] [address] 2 D/M-MODE ECHOCARDIOGRAM Name: PIPPA DOWNS Room #: 450-P [facility]#: [id number] Admission: 02/27/18 Attend Phys: Bhaskar Joseph MD Discharge: Date of : 62 Date of Service: 02/28/18 1547 Report #: [id number] regurgitation. PAP is estimated at 48 mmHg. Pulmonic Valve The pulmonary valve is normal in structure. Mild pulmonic regurgitation. Great Vessels The aortic root is normal in size. IVC is upper limits of normal in size and collapses <50% with inspiration. Pericardium There is no pericardial effusion. Large left pleural effusion noted. <Conclusion> The left ventricle is normal size. Left ventricular systolic function is moderately decreased.inf wall severe hypokinesis LVEF is 30-35%. Transmitral Doppler flow pattern suggests restrictive physiology. Right ventricle is hypokinetic. Left atrium is moderately dilated. Trace aortic regurgitation. Trace to mild mitral regurgitation. Moderate tricuspid regurgitation. PAP is estimated at 48 mmHg. The aortic root is normal in size. There is no pericardial effusion. <ELECTRONICALLY SIGNED> By: Monroe Elias MD, FACC 02/28/18 1547 1547 1547 Monroe Elias MD, FACC /INF
--- NOTE | ~2018-02-27 | EKG ---
[address] [place] [address] ELECTROCARDIOGRAM REPORT Name: PIPPA DOWNS Room #: 450-[facility] IN ..#: [id number] Admission: 02/27/18 Attend Phys: Bhasakr Joseph MD Discharge: Date of : 62 Report #: [id number] THIS REPORT FOR: //name// [facility] ED Test Date: 2018-02-27 Test Time: 12:03:24 Pat Name: PIPPA DOWNS Department: Room: Gender: F Galley Boy: MZOOK : 1960 Requested By: Miguel Suazo Order Number: [id number] MD: Blair De León Measurements Intervals [place] Rate: 95 P: 47 IA: 138 QRS: 4 QRSD: 72 T: 76 QT: 359 QTc: 452 Interpretive Statements Sinus rhythm Low voltage, extremity leads Compared to ECG 11/18/2016 17:12:54 Low QRS voltage now present Nonspecific change in the ST and T-wave segments Electronically Signed On 03-01-2018 8:25:13 CDT by Blair De León [email or web address] <ELECTRONICALLY SIGNED> By: Blair De León MD, [facility] 03/01/18 0825 1203 1203 Blair De León MD, [facility] /EPI
--- NOTE | ~2018-02-27 | HC ---
[facility] [place] [address] CONSULTATION Name: PIPPA DOWNS Room #: 207-P [facility]#: [id number] Admission: 02/27/18 Attend Phys: Bhaskar Joseph MD Discharge: 03/15/18 Date of : 62 Report #: [id number] THIS REPORT FOR: //name// CC: Yuliana Joseph DATE OF SERVICE: 03/13/2018 CHIEF COMPLAINT: Toe ulceration and sacral ulceration. HISTORY OF PRESENT ILLNESS: This is a 57-year-old female patient who was admitted on 02/27/2018. She has a history of chronic kidney disease, on peritoneal dialysis; type 2 diabetes mellitus and hypothyroidism. She was having chest pain at that time. She is severely malnourished, has a persistent diarrhea and some breakdown on her sacral gluteal region. She also has a chronic small ulcer to her great toe. PAST MEDICAL HISTORY: Positive for history of anasarca; chest pain; congestive heart failure; diabetes; end-stage renal disease, requiring peritoneal dialysis and lactic acidosis. She has an AICD in place. ALLERGIES: INCLUDE SUDAFED, SULFA AND . MEDICATIONS: Include Zoloft, Travatan, Zofran, Renvela, Protonix, Coreg, Combigan eye drops, Synthroid, Nephrocaps and Tradjenta. SOCIAL HISTORY: The patient is a nonsmoker. Admits to occasional alcohol use. FAMILY HISTORY: Noncontributory. REVIEW OF SYSTEMS: Not obtainable due to the patient's decreased level of consciousness. She is lying in bed. She does open her eyes, does not answer questions. PHYSICAL EXAMINATION: VITAL SIGNS: At this time include pulse 82, respiratory rate of 18, blood pressure 94/30 and temperature 98.3. GENERAL: This is a chronically ill-appearing female patient, who appears to be in no distress. HEAD: Normocephalic. NECK: Supple. LUNGS: Diminished. HEART: Regular rhythm. ABDOMEN: Soft. SKIN: Examination of the sacral gluteal region demonstrates moderate erythema, consistent with irritation from persistent diarrhea. There may be a fungal [facility] [address] [place] [address] CONSULTATION Name: ANA MARIADenilsonPIPPA Fernando Room #: 207-P [facility]#: [id number] Admission: 02/27/18 Attend Phys: Bhaskar Joseph MD Discharge: 03/15/18 Date of : 62 Report #: [id number] component here. EXTREMITIES: The lower extremities demonstrate a small ulceration on the tip of the great toe with a tiny eschar in place. No evidence of infection. CLINICAL IMPRESSION: 1. Gluteal sacral dermatitis, likely secondary to excessive moisture from frequent stools. 2. Severe protein-calorie malnutrition. 3. Ulceration to the great toe. 4. End-stage renal disease, requiring hemodialysis. RECOMMENDATIONS: At this point in time, we will recommend Silvadene, morphine, and zinc oxide to be applied to the gluteal region b.i.d. and p.r.n. soiling. She will need every 2-hour turning position and would recommend consideration of a low air loss mattress. She will need aggressive nutritional support. Recommend a small amount of Betadine "paint" to the tip of the great toe. I appreciate being asked to see her in consultation. <ELECTRONICALLY SIGNED> By: Richard Lopes MD 03/18/18 1311 1205 [id number] Richard Lopes MD /nt
[~2018-02-27 11:47] MED LIST changes: +AZOPT OPHTH1 %/10 M1; -AZOPT5 ML OP
[2018-02-27 11:54] VITALS: BP 162/86
[2018-02-27 13:58] LABS: ABSOLUTE NEUTROPHILS 8.3 thou/uL (1.4-8.2); BASOPHILS 0.3 % (0.0-2.0); HEMATOCRIT 38.8 % (37.0-47.0); HEMOGLOBIN 12.6 gm/dL (12.0-15.0); LYMPHOCYTES 6.1 % (24.0-44.0); MCHC 32.3 g/dL (28.0-37.0); MCV 98.9 fL (80.0-100.0); MONOCYTES 5.2 % (1.0-8.0); PLATELET COUNT 254 thou/uL (150-400); POLYS 88.4 % (36.0-66.0); RBC 3.93 mil/uL (4.20-5.00); RDW 19.3 % (10.5-14.5); WBC 9.3 thou/uL (4.0-11.0)
[2018-02-27 14:11] LABS: ANION GAP 10 mmol/L (7-16); BUN 31 mg/dL (7-18); CALCIUM 7.8 mg/dL (8.5-10.1); CHLORIDE 95 mmol/L (98-107); CO2 27 mmol/L (21-32); CREATININE 5.6 mg/dL (0.6-1.0); GLUCOSE 464 mg/dL (74-106); POTASSIUM 3.5 mmol/L (3.5-5.1); SODIUM 132 mmol/L (136-145)
[2018-02-27 14:20] LABS: ALBUMIN 1.3 g/dL (3.4-5.0); SGOT 14 U/L (15-37); SGPT 11 U/L (30-65); TOTAL BILIRUBIN 0.4 mg/dL (<0.1-1.0); TOTAL PROTEIN 5.3 g/dL (6.4-8.2); TROPONIN-I <0.06 ng/mL (<0.06)
[2018-02-27 15:21] VITALS: BP 170/82
[2018-02-27 16:41] VITALS: BP 133/64
[2018-02-27] MEDS ORDERED: PROTONIX40 M1 PO (17:09)
[2018-02-27 19:26] VITALS: BP 121/63
[2018-02-28] VITALS (7 sets, daily range): BP systolic 121–172; BP diastolic 55–86
[2018-02-28] LABS: BF NUCLEATED CELLS 80; BF RBC 411
[2018-02-28 00:43] LABS: CLARITY CLEAR; COLOR YELLOW
[2018-02-28 00:44] LABS: SOURCE PERITONEAL
[2018-02-28 02:16] LABS: BF NEUTROPHILS 4
[2018-02-28 02:24] LABS: TOTAL VOLUME 45 mL
[2018-02-28 02:48] LABS: HEMATOCRIT 40.3 % (37.0-47.0); HEMOGLOBIN 12.8 gm/dL (12.0-15.0); MCHC 31.7 g/dL (28.0-37.0); MCV 101.1 fL (80.0-100.0); RBC 3.98 mil/uL (4.20-5.00); RDW 20.3 % (10.5-14.5)
[2018-02-28 03:16] LABS: ANION GAP 12 mmol/L (7-16); BUN 33 mg/dL (7-18); CALCIUM 7.7 mg/dL (8.5-10.1); CHLORIDE 95 mmol/L (98-107); CO2 23 mmol/L (21-32); CREATININE 5.5 mg/dL (0.6-1.0); POTASSIUM 3.6 mmol/L (3.5-5.1); SODIUM 130 mmol/L (136-145); TROPONIN-I <0.06 ng/mL (<0.06)
[2018-02-28 03:19] LABS: GLUCOSE 527 mg/dL (74-106)
[2018-02-28 03:22] LABS: URINE BILIRUBIN NEGATIVE (Negative); URINE BLOOD 2+ (Negative); URINE CLARITY TURBID; URINE COLOR YELLOW; URINE GLUCOSE-RANDOM* 1+ (Negative); URINE KETONES NEGATIVE (Negative); URINE LEUKOCYTES 2+ (Negative); URINE NITRITE NEGATIVE (Negative); URINE PROTEIN (DIPSTICK) 3+ (Negative); URINE SPECIFIC GRAVITY 1.025 (1.005-1.035); URINE UROBILINOGEN 0.2 E.U./dl (0.2-1.0)
[2018-02-28 03:37] LABS: BACTERIA >30 Many /HPF (None Seen); CASTS None Seen /LPF (None Seen); CRYSTALS None Seen /LPF (None Seen); SQUAMOUS 0-3 Few /LPF (0-3); URINE RBC 3-10 Few /HPF (0-2); URINE WBC >25 Many /HPF (0-5)
[2018-02-28 12:11] LABS: INR 1.2; PROTIME 12.4 Seconds (9.3-11.4)
[2018-02-28 16:10] LABS: CLARITY SLIGHTLY CLOUDY; COLOR YELLOW; SOURCE LEFT THORA; TOTAL VOLUME 60 mL
[2018-02-28 18:17] LABS: BF NUCLEATED CELLS 14; BF RBC 6050
[2018-02-28 18:20] LABS: BF MACROPHAGE 53; BF NEUTROPHILS 10
[2018-03-01 01:05] LABS: GLYCOHEMOGLOBIN (HGB A1C) 8.5 % (4.8-5.6)
[2018-03-01 04:28] VITALS: BP 128/62
[2018-03-01 08:00] VITALS: BP 147/74
[2018-03-01 09:14] LABS: BODY FLUID ALBUMIN 0.8 g/dL (()); BODY FLUID AMYLASE 26 U/L (()); BODY FLUID GLUCOSE 395 mg/dL (()); BODY FLUID LDH 108 IU/L (()); BODY FLUID PROTEIN 1.9 g/dL (())
[2018-03-01 16:00] VITALS: BP 117/74
[2018-03-01 19:55] VITALS: BP 116/58
[2018-03-02 03:48] LABS: HEMATOCRIT 42.4 % (37.0-47.0); HEMOGLOBIN 13.6 gm/dL (12.0-15.0); MCHC 32.1 g/dL (28.0-37.0); MCV 99.7 fL (80.0-100.0); RBC 4.25 mil/uL (4.20-5.00); RDW 19.6 % (10.5-14.5); WBC 7.4 thou/uL (4.0-11.0)
[2018-03-02 04:07] LABS: CALCIUM 7.6 mg/dL (8.5-10.1); CREATININE 5.4 mg/dL (0.6-1.0)
[2018-03-02 04:15] VITALS: BP 116/67
[2018-03-02 04:16] LABS: POTASSIUM 2.6 mmol/L (3.5-5.1)
[2018-03-02 07:22] VITALS: BP 103/49
[2018-03-02 08:00] VITALS: BP 103/49
[2018-03-02 08:48] LABS: SOURCE CHEST
[2018-03-02 15:10] VITALS: BP 111/54
[2018-03-03] VITALS (53 sets, daily range): BP systolic 63–192; BP diastolic 44–101
[2018-03-03 05:34] LABS: BE(vivo) -2.2 mmol/L (-2 to +3); HCO3 21.2 mmol/L (22.0-26.0); PCO2 32.8 mmHg (35.0-45.0); PO2 458.8 mmHg (80.0-100.0); pH 7.429 (7.360-7.450); sO2 99.9 % (92.0-98.0)
[2018-03-03 12:14] LABS: HEMOGLOBIN 14.7 gm/dL (12.0-15.0); MCH 31.9 pg (26.0-34.0); MCHC 32.6 g/dL (28.0-37.0); MCV 97.7 fL (80.0-100.0); RBC 4.6 mil/uL (4.20-5.00); RDW 19.6 % (10.5-14.5); WBC 14.8 thou/uL (4.0-11.0)
[2018-03-03 12:23] LABS: CALCIUM 7.6 mg/dL (8.5-10.1); CREATININE 5.7 mg/dL (0.6-1.0)
[2018-03-03 12:24] LABS: POTASSIUM 2.6 mmol/L (3.5-5.1)
[2018-03-04] VITALS (28 sets, daily range): BP systolic 91–125; BP diastolic 61–72
[2018-03-04 05:10] LABS: HEMATOCRIT 45.6 % (37.0-47.0); MCHC 32.8 g/dL (28.0-37.0); MCV 97.4 fL (80.0-100.0); RBC 4.68 mil/uL (4.20-5.00); RDW 19.7 % (10.5-14.5); WBC 13.5 thou/uL (4.0-11.0)
[2018-03-04 05:22] LABS: ALBUMIN 0.9 g/dL (3.4-5.0); CALCIUM 7.4 mg/dL (8.5-10.1); CREATININE 5.3 mg/dL (0.6-1.0); MAGNESIUM 1.8 mg/dL (1.8-2.4); PHOSPHORUS 4.1 mg/dL (2.5-4.9); POTASSIUM 3.3 mmol/L (3.5-5.1); TOTAL BILIRUBIN 0.4 mg/dL (<0.1-1.0); TOTAL PROTEIN 4.7 g/dL (6.4-8.2)
[2018-03-04 05:29] LABS: BE(vivo) -0.9 mmol/L (-2 to +3); HCO3 22.6 mmol/L (22.0-26.0); PCO2 34.6 mmHg (35.0-45.0); pH 7.433 (7.360-7.450); sO2 99.1 % (92.0-98.0)
[2018-03-04 08:00] LABS: BE(vivo) 0.5 mmol/L (-2 to +3); HCO3 24.3 mmol/L (22.0-26.0); PCO2 36.6 mmHg (35.0-45.0); PO2 150.5 mmHg (80.0-100.0)
[2018-03-05 05:34] LABS: ALBUMIN 0.8 g/dL (3.4-5.0); CALCIUM 7.5 mg/dL (8.5-10.1); CREATININE 5.2 mg/dL (0.6-1.0); PHOSPHORUS 4.2 mg/dL (2.5-4.9); POTASSIUM 3.9 mmol/L (3.5-5.1)
[2018-03-05 19:00] VITALS: BP 72/47
[2018-03-05 20:00] VITALS: BP 95/63
[2018-03-05 21:00] VITALS: BP 110/63
[2018-03-05 22:00] VITALS: BP 106/61
[2018-03-05 23:00] VITALS: BP 87/56
[2018-03-06] VITALS (15 sets, daily range): BP systolic 72–136; BP diastolic 41–73
[2018-03-06 21:32] LABS: BF NUCLEATED CELLS 157; BF RBC 1442
[2018-03-06 21:34] LABS: CLARITY CLEAR; COLOR YELLOW; SOURCE THORACENTESIS; TOTAL VOLUME 20 mL
[2018-03-06 23:06] LABS: BF MACROPHAGE 10; BF NEUTROPHILS 5
[2018-03-07] VITALS (12 sets, daily range): BP systolic 79–128; BP diastolic 51–69
[2018-03-07 04:29] LABS: CALCIUM 7.6 mg/dL (8.5-10.1); CREATININE 5.1 mg/dL (0.6-1.0); POTASSIUM 3.6 mmol/L (3.5-5.1)
[2018-03-07 04:44] LABS: ABSOLUTE NEUTROPHILS 8.3 thou/uL (1.4-8.2); EOSINOPHILS 1.9 % (0.0-3.0); HEMATOCRIT 40.3 % (37.0-47.0); LYMPHOCYTES 10.9 % (24.0-44.0); MCH 31.4 pg (26.0-34.0); MCHC 32.3 g/dL (28.0-37.0); MCV 97.5 fL (80.0-100.0); MONOCYTES 8.1 % (1.0-8.0); PLATELET COUNT 177 thou/uL (150-400); POLYS 78.1 % (36.0-66.0); RBC 4.13 mil/uL (4.20-5.00); RDW 19.4 % (10.5-14.5); WBC 10.6 thou/uL (4.0-11.0)
[2018-03-07 08:15] LABS: SOURCE THORACENTESIS
[2018-03-07 08:16] LABS: SOURCE THORACENTESIS
[2018-03-08] VITALS (16 sets, daily range): BP systolic 82–140; BP diastolic 47–91
[2018-03-08 04:59] LABS: ABSOLUTE NEUTROPHILS 8.4 thou/uL (1.4-8.2); BASOPHILS 1.4 % (0.0-2.0); EOSINOPHILS 1.8 % (0.0-3.0); HEMATOCRIT 38.8 % (37.0-47.0); HEMOGLOBIN 12.5 gm/dL (12.0-15.0); LYMPHOCYTES 9.8 % (24.0-44.0); MCH 31.5 pg (26.0-34.0); MCHC 32.1 g/dL (28.0-37.0); MCV 98.1 fL (80.0-100.0); MONOCYTES 7.3 % (1.0-8.0); PLATELET COUNT 179 thou/uL (150-400); POLYS 79.7 % (36.0-66.0); RBC 3.96 mil/uL (4.20-5.00); RDW 18.8 % (10.5-14.5); WBC 10.5 thou/uL (4.0-11.0)
[2018-03-08 05:07] LABS: CALCIUM 7.4 mg/dL (8.5-10.1); POTASSIUM 3.4 mmol/L (3.5-5.1)
[2018-03-08 15:10] LABS: BODY FLUID ALBUMIN 0.1 g/dL (()); BODY FLUID AMYLASE 24 U/L (()); BODY FLUID GLUCOSE 426 mg/dL (()); BODY FLUID LDH 141 IU/L (()); BODY FLUID PROTEIN 0.7 g/dL (())
[2018-03-08 18:20] LABS: HEMATOCRIT 37.7 % (37.0-47.0); HEMOGLOBIN 12.1 gm/dL (12.0-15.0); MCH 31.9 pg (26.0-34.0); MCHC 32.2 g/dL (28.0-37.0); MCV 98.9 fL (80.0-100.0); RBC 3.81 mil/uL (4.20-5.00); RDW 18.5 % (10.5-14.5); WBC 9.9 thou/uL (4.0-11.0)
[2018-03-09] VITALS (18 sets, daily range): BP systolic 80–136; BP diastolic 50–81
[2018-03-10 02:04] LABS: HEMATOCRIT 33.7 % (37.0-47.0); HEMOGLOBIN 10.8 gm/dL (12.0-15.0); MCH 31.5 pg (26.0-34.0); MCHC 31.9 g/dL (28.0-37.0); MCV 98.6 fL (80.0-100.0); RBC 3.42 mil/uL (4.20-5.00); RDW 18.6 % (10.5-14.5); WBC 8.1 thou/uL (4.0-11.0)
[2018-03-10 02:16] LABS: ALBUMIN 0.9 g/dL (3.4-5.0); CALCIUM 7.4 mg/dL (8.5-10.1); CREATININE 5.2 mg/dL (0.6-1.0); PHOSPHORUS 3.5 mg/dL (2.5-4.9); POTASSIUM 5.5 mmol/L (3.5-5.1); TOTAL BILIRUBIN 0.3 mg/dL (<0.1-1.0); TOTAL PROTEIN 4.2 g/dL (6.4-8.2)
[2018-03-10 03:00] VITALS: BP 100/58
[2018-03-10 07:27] VITALS: BP 92/56
[2018-03-10 16:15] VITALS: BP 105/59
[2018-03-10 20:04] VITALS: BP 100/57
[2018-03-11 06:13] LABS: ALBUMIN 0.9 g/dL (3.4-5.0); CALCIUM 7.6 mg/dL (8.5-10.1); CREATININE 5.1 mg/dL (0.6-1.0); PHOSPHORUS 3.3 mg/dL (2.5-4.9)
[2018-03-11 06:56] VITALS: BP 11/50
[2018-03-11 08:32] VITALS: BP 118/61
[2018-03-11 17:00] VITALS: BP 112/72
[2018-03-11 18:04] VITALS: BP 80/48
[2018-03-11 21:01] VITALS: BP 83/52
[2018-03-12 05:35] LABS: ABSOLUTE NEUTROPHILS 5.8 thou/uL (1.4-8.2); BASOPHILS 1.2 % (0.0-2.0); EOSINOPHILS 1.7 % (0.0-3.0); HEMATOCRIT 36.5 % (37.0-47.0); HEMOGLOBIN 11.6 gm/dL (12.0-15.0); LYMPHOCYTES 11.1 % (24.0-44.0); MCH 31.6 pg (26.0-34.0); MCHC 31.7 g/dL (28.0-37.0); MCV 99.6 fL (80.0-100.0); MONOCYTES 6.4 % (1.0-8.0); PLATELET COUNT 157 thou/uL (150-400); POLYS 79.6 % (36.0-66.0); RBC 3.66 mil/uL (4.20-5.00); WBC 7.3 thou/uL (4.0-11.0)
[2018-03-12 05:54] LABS: ALBUMIN 0.9 g/dL (3.4-5.0); MAGNESIUM 2.3 mg/dL (1.8-2.4); TOTAL BILIRUBIN 0.3 mg/dL (<0.1-1.0); TOTAL PROTEIN 3.8 g/dL (6.4-8.2)
[2018-03-12 06:02] LABS: CALCIUM 7.7 mg/dL (8.5-10.1); CREATININE 5.1 mg/dL (0.6-1.0)
[2018-03-12 06:30] VITALS: BP 79/51
[2018-03-12 08:23] VITALS: BP 69/40
[2018-03-12 15:45] VITALS: BP 72/46
[2018-03-12 19:13] VITALS: BP 86/34
[2018-03-13 03:12] LABS: ABSOLUTE NEUTROPHILS 7.7 thou/uL (1.4-8.2); BASOPHILS 1.5 % (0.0-2.0); EOSINOPHILS 0.8 % (0.0-3.0); HEMATOCRIT 36.6 % (37.0-47.0); HEMOGLOBIN 11.8 gm/dL (12.0-15.0); LYMPHOCYTES 9.5 % (24.0-44.0); MCH 31.8 pg (26.0-34.0); MCHC 32.3 g/dL (28.0-37.0); MCV 98.4 fL (80.0-100.0); MONOCYTES 5.3 % (1.0-8.0); PLATELET COUNT 204 thou/uL (150-400); POLYS 82.9 % (36.0-66.0); RBC 3.73 mil/uL (4.20-5.00); RDW 18.7 % (10.5-14.5); WBC 9.3 thou/uL (4.0-11.0)
[2018-03-13 03:23] LABS: ALBUMIN 0.8 g/dL (3.4-5.0); CALCIUM 7.8 mg/dL (8.5-10.1); CREATININE 5.4 mg/dL (0.6-1.0); MAGNESIUM 2.3 mg/dL (1.8-2.4); PHOSPHORUS 3.9 mg/dL (2.5-4.9); POTASSIUM 5.1 mmol/L (3.5-5.1)
[2018-03-13 03:24] LABS: APTT 40.3 Seconds (24.5-32.8); PROTIME 10.5 Seconds (9.3-11.4)
[2018-03-13 03:29] LABS: FIBRINOGEN 477.7 mg/dL (210-360)
[2018-03-13 04:53] VITALS: BP 94/38
[2018-03-13 08:02] VITALS: BP 97/55
[2018-03-13 15:54] LABS: BE(vivo) -2.2 mmol/L (-2 to +3); HCO3 23.6 mmol/L (22.0-26.0); PCO2 44.6 mmHg (35.0-45.0); PO2 82.5 mmHg (80.0-100.0); pH 7.342 (7.360-7.450); sO2 95.5 % (92.0-98.0)
[2018-03-13 20:22] VITALS: BP 112/61
[2018-03-14 04:23] VITALS: BP 101/54
[2018-03-14 07:41] VITALS: BP 136/64
[2018-03-14 09:13] LABS: HEMATOCRIT 38.1 % (37.0-47.0); HEMOGLOBIN 12.1 gm/dL (12.0-15.0); MCH 31.2 pg (26.0-34.0); MCHC 31.8 g/dL (28.0-37.0); MCV 98.4 fL (80.0-100.0); PLATELET COUNT 220 thou/uL (150-400); RBC 3.87 mil/uL (4.20-5.00); RDW 18.8 % (10.5-14.5); WBC 10.1 thou/uL (4.0-11.0)
[2018-03-14 09:20] LABS: CALCIUM 8.3 mg/dL (8.5-10.1); POTASSIUM 4.6 mmol/L (3.5-5.1)
[2018-03-14 09:40] LABS: ABSOLUTE NEUTROPHILS 7.8 thou/uL (1.4-8.2); ANISOCYTOSIS 2+; PLATELET ESTIMATE NORMAL
[2018-03-14 11:46] VITALS: BP 99/44
[2018-03-14 15:45] VITALS: BP 101/47
[2018-03-14 19:40] VITALS: BP 144/76
[2018-03-14 19:52] VITALS: BP 128/51
[2018-03-15 04:16] VITALS: BP 104/59
[2018-03-15 07:30] VITALS: BP 129/61
[2018-03-15 11:30] VITALS: BP 98/51
[2018-03-15 16:05] VITALS: BP 98/56
[2018-03-15] MEDS ORDERED: PREVALITE PACKET4 GM PO (17:21)
[2018-03-15] MEDS ORDERED: MIRALAX17 GM PO (17:21)
[2018-03-15] MEDS ORDERED: PROCHLORPE10 MG/2 ML IV PUSH (17:21)
[2018-03-15] MEDS ORDERED: MIDODRINE HCL 55 M1 PO (17:21)
[2018-03-15] MEDS ORDERED: ACIDOPHILUS1 EAC4 PO (17:21)
[2018-03-15] MEDS ORDERED: LOPERAMIDE 2 MG2 M1 PO (17:21)
[2018-03-15] MEDS ORDERED: NOVOLOG100 UNIT/1 SUBQ (17:21)
[2018-03-15] MEDS ORDERED: MILK OF MA2400 MG/10 PO (17:21)
== END 2018-03-15 17:20 | DRG 208 ==
LOC: ER 11:47 → EROBS 15:08 → 4W 15:08 → ICU 03-03 03:00 → 2N 03-09 16:03
PROVIDERS: Emergency Medicine; Hospitalist; Internal Medicine Nephrology; Internal Medicine Pulmonary Disease
PROC: 3E1M39Z Irrigation of Peritoneal Cavity using Dialysate, Percutaneous Approach (ICD-10-PCS; principal; 2018-02-27)
PROC: 0W9B3ZZ Drainage of Left Pleural Cavity, Percutaneous Approach (ICD-10-PCS; 2018-02-28)
PROC: 0W9B30Z Drainage of Left Pleural Cavity with Drainage Device, Percutaneous Approach (ICD-10-PCS; 2018-03-02)
PROC: 0BH17EZ Insertion of Endotracheal Airway into Trachea, Via Natural or Artificial Opening (ICD-10-PCS; 2018-03-03)
PROC: 5A1945Z Respiratory Ventilation, 24-96 Consecutive Hours (ICD-10-PCS; 2018-03-03)
PROC: 3E1M39Z Irrigation of Peritoneal Cavity using Dialysate, Percutaneous Approach (ICD-10-PCS; 2018-03-03)
PROC: 0WPB30Z Removal of Drainage Device from Left Pleural Cavity, Percutaneous Approach (ICD-10-PCS; 2018-03-04)
PROC: 3E1M39Z Irrigation of Peritoneal Cavity using Dialysate, Percutaneous Approach (ICD-10-PCS; 2018-03-05)
PROC: 3E1M39Z Irrigation of Peritoneal Cavity using Dialysate, Percutaneous Approach (ICD-10-PCS; 2018-03-07)
PROC: 3E1M39Z Irrigation of Peritoneal Cavity using Dialysate, Percutaneous Approach (ICD-10-PCS; 2018-03-10)
PROC: 3E1M39Z Irrigation of Peritoneal Cavity using Dialysate, Percutaneous Approach (ICD-10-PCS; 2018-03-11)
DX: J93.9 Pneumothorax, unspecified (principal); N18.6 End stage renal disease; E43 Unspecified severe protein-calorie malnutrition; J96.01 Acute respiratory failure with hypoxia; I46.9 Cardiac arrest, cause unspecified; G93.41 Metabolic encephalopathy; I13.2 Hypertensive heart and chronic kidney disease with heart failure and with stage 5 chronic kidney disease, or end stage renal disease; I42.9 Cardiomyopathy, unspecified; Z68.1 Body mass index [BMI] 19.9 or less, adult; I50.20 Unspecified systolic (congestive) heart failure; N39.0 Urinary tract infection, site not specified; R18.8 Other ascites; J90 Pleural effusion, not elsewhere classified; E11.22 Type 2 diabetes mellitus with diabetic chronic kidney disease; E11.319 Type 2 diabetes mellitus with unspecified diabetic retinopathy without macular edema; H40.9 Unspecified glaucoma; E11.40 Type 2 diabetes mellitus with diabetic neuropathy, unspecified; H54.62 Unqualified visual loss, left eye, normal vision right eye; E03.9 Hypothyroidism, unspecified; E88.09 Other disorders of plasma-protein metabolism, not elsewhere classified; L30.8 Other specified dermatitis; L97.509 Non-pressure chronic ulcer of other part of unspecified foot with unspecified severity; R41.0 Disorientation, unspecified; E11.65 Type 2 diabetes mellitus with hyperglycemia; D75.89 Other specified diseases of blood and blood-forming organs; I95.9 Hypotension, unspecified; I27.20 Pulmonary hypertension, unspecified; Z95.0 Presence of cardiac pacemaker; Z88.2 Allergy status to sulfonamides; Z88.8 Allergy status to other drugs, medicaments and biological substances; Z79.899 Other long term (current) drug therapy; Z91.14 Patient's other noncompliance with medication regimen
CPT/HCPCS: 10045; 10078; 10081; 27000; 33000

== ENCOUNTER 2018-05-02 04:09 | Inpatient (IN) | payer OTHER ==
[~2018-05-02] VITALS: Ht 162.6 cm; Wt 50.2 kg
[2018-05-02] VITALS (28 sets, daily range): BP systolic 91–163; BP diastolic 55–96
--- NOTE | ~2018-05-02 | 2DMMODE ---
[facility] [address] 2 D/M-MODE ECHOCARDIOGRAM Name: PIPPA DOWNS Room #: 239-P [facility] IN ..#: [id number] Admission: 05/02/18 Attend Phys: Butch Nicole MD Discharge: Date of : 62 Date of Service: 05/02/18 1236 Report #: [id number] THIS REPORT FOR: //name// APPROVED REPORT Study performed: 05/02/2018 10:43:43 EXAM: Limited 2D, Doppler, and color-flow Echocardiogram Patient Location: ICU Room #: 239 Status: routine BSA: 1.60 HR: 78 bpm BP: 152/74 mmHg Rhythm: NSR Other Information Study Quality: Good Indications LV function status post cardiac arrest. Rule out pericardial effusion. Hx: AICD, cardiomyopathy EF 30-35% on 02/28/2018. 2D Dimensions LVDd: 38.63 mm Aortic Valve AoV Peak Myron.: 1.26 m/s AO Peak Gr.: 6.34 mmHg Tricuspid Valve TR Peak Myron.: 4.00 m/s RAP Estimate: 10.00 mmHg TR Peak Gr.: 64.00 mmHg PA Pressure: 74.00 mmHg Left Ventricle The left ventricle is normal size. Concentric left ventricular hypertrophy. Left ventricular systolic function is normal. LVEF is 55%. Right Ventricle Right ventricle is hypokinetic. Device lead is present in the right ventricle. Aortic Valve Aortic valve is trileaflet. No aortic regurgitation is present. There [facility] [place] [address] [place] [address] 2 D/M-MODE ECHOCARDIOGRAM Name: PIPPA DOWNS Room #: 239-P [facility] IN M.R.#: [id number] Admission: 05/02/18 Attend Phys: Butch Nicole MD Discharge: Date of : 62 Date of Service: 05/02/18 1236 Report #: [id number] is no aortic valvular stenosis. Mitral Valve The mitral valve is normal in structure. Trace to mild mitral regurgitation. Tricuspid Valve The tricuspid valve is normal in structure. Mild to moderate tricuspid regurgitation. Estimated PAP of 75mmHg. Great Vessels IVC is normal in size and collapses <50% with inspiration. Pericardium There is no pericardial effusion. Left pleural effusion noted. <Conclusion> The left ventricle is normal size. Concentric left ventricular hypertrophy. LVEF is 55%. Right ventricle is hypokinetic. Device lead is present in the right ventricle. Aortic valve is trileaflet. The mitral valve is normal in structure. Trace to mild mitral regurgitation. The tricuspid valve is normal in structure. Mild to moderate tricuspid regurgitation. Estimated PAP of 75mmHg. There is no pericardial effusion. <ELECTRONICALLY SIGNED> By: Carlton Vasquez MD 05/02/18 1236 1236 123 Carlton Vasquez MD /INF
--- NOTE | ~2018-05-02 | HC ---
[facility] [place] [address] CONSULTATION Name: PIPPA DOWNS Room #: 239-P [facility] IN M.R.#: [id number] Admission: 05/02/18 Attend Phys: Cooper Moscoso Discharge: Date of : 62 Report #: [id number] THIS REPORT FOR: //name// CC: Yuliana Moscoso Thank you very much for the consultation. CHIEF COMPLAINT: V-tach and PEA arrest. HISTORY OF PRESENT ILLNESS: The patient is a 57-year-old female who I am familiar with from previous hospitalizations. She has a history of end-stage renal disease and subsequent peritoneal dialysis, has had multiple admissions for multiple other comorbidities. Unfortunately, she was at home, had recently arrived home from rehab for approximately 3 days and was seeing blood sugars over the 500 rose marie. They thought that this may have been a problem with her glucometer. Unfortunately, it appeared that she had hyperosmolar state. Subsequently, she had in the home arrest with CPR and also received epinephrine and two defibrillations. She has an AICD, but this apparently was interrogated and did not fire because of the rhythms that she was in. She did have return of spontaneous circulation in approximately 35 minutes. She had hypothermia protocol. [facility]. Unfortunately, she has had no recovery in her mental status up to this point. She had a cerebral perfusion study performed today although it did not reveal the completeness that we would like from a study. Her physical exam findings and Neurology evaluation are consistent with brain . Additionally, her study shows that there is little to no perfusion of areas that were seen. She is nonresponsive to stimuli. Per staff; however, family does report some movements of her right upper extremity only. PAST MEDICAL HISTORY: Coronary artery disease; hypertension; hyperlipidemia; congestive heart failure, combined type; end-stage renal disease with peritoneal dialysis and severe retinopathy and type 2 diabetes. PAST SURGICAL HISTORY: She has had D and C, ICD placement and right arm AV fistula. MEDICATIONS: Zoloft, Travatan, [place], Renvela, levothyroxine, Protonix, Coreg, Combigan, Azopt and Tradjenta. ALLERGIES: SALMON, PSEUDOEPHEDRINE AND BACTRIM. SOCIAL HISTORY: She was currently full code. She has two durable power of ip technology transactions attorney decision makers in her daughters. She does have an ex-, but he is not a decision maker at this time. FAMILY HISTORY: Noncontributory. [facility] [address] [place] [address] CONSULTATION Name: PIPPA DOWNS Room #: 239-P [facility] IN [facility]#: [id number] Admission: 05/02/18 Attend Phys: Cooper Moscoso Discharge: Date of : 62 Report #: [id number] REVIEW OF SYSTEMS: Unable to obtain due to medical condition. PHYSICAL EXAMINATION: VITAL SIGNS: Temperature 36.1, pulse 97, respirations 17, blood pressure 99/61 and 100% on mechanical ventilator. GENERAL: She is not alert to any stimuli. HEENT: No corneal reflex appreciated. She has fixed pupils bilaterally. CARDIOVASCULAR: Regular rate and rhythm. LUNGS: Mechanical lung sounds. ABDOMEN: Diminished bowel sounds and nondistended. LABORATORY DATA: Hemoglobin 9.0. Creatinine 5.9 and sodium 135. ASSESSMENT AND PLAN: 1. Pulseless electrical activity arrest again this has led to multiple concerns and multiple comorbidities. The patient has had unfortunately an event resulting in anoxic brain injury and likely brain related to this. At this time, I have discussed with both DPOA daughters in addition to another daughter spent approximately 40 minutes with advanced directive discussion, decision is to likely pursue with palliative withdrawal of mechanical ventilator. If she were to persist despite this likely to transfer to an inpatient hospice facility for further management. I am awaiting their final decision with regards to timing on this in addition to withdrawal of other medication, which include antibiotics. I did discuss likely origins of in the event of withdrawal of ventilation. Did discuss scenarios in which she could potentially return home with family if they desired. Did discuss need to change from full code to alternate code status in the event of this. Again awaiting final decision with regards to timing and authorization for these changes. We will follow up tomorrow on this. 2. Anoxic brain injury again leading to discussion as above. 3. End-stage renal disease. Again as above and I do appreciate nephrology's input with regards to no longer doing peritoneal dialysis and family is amenable to this. 4. I will continue to follow along with this patient's care. Thank you very much for this consultation. By: [id number] Ward Poole DO /nt
--- NOTE | ~2018-05-02 | EKG ---
[address] [address] ELECTROCARDIOGRAM REPORT Name: ANA MARIADenilsonPIPPA Fernando Room #: 239-P ADM IN M.R.#: [id number] Admission: 05/02/18 Attend Phys: Cooper Moscoso Discharge: Date of : 62 Report #: [id number] THIS REPORT FOR: //name// [facility] Test Date: 2018-05-02 Test Time: 05:30:06 Pat Name: PIPPA DOWNS Department: Room: 239 P Gender: F Sleeve Setter: FABIO : 1960 Requested By: Mirela Garces Order Number: [id number] MD: Victor Manuel Shay Measurements Intervals [place] Rate: 104 P: 17 GA: 123 QRS: 12 QRSD: 76 T: 241 QT: 404 QTc: 532 Interpretive Statements Sinus tachycardia Nonspecific repol abnormality, diffuse leads Compared to ECG 04/15/2018 17:45:14 Electronically Signed On 05-06-2018 16:58:21 CDT by Victor Manuel Shay [email or web address] <ELECTRONICALLY SIGNED> By: Victor Manuel Shay MD 05/06/18 1658 9 9 Victor Manuel Shay MD /RADHA
--- NOTE | ~2018-05-02 | HC ---
[facility] [address] [place] [address] [place] [address] CONSULTATION Name: PIPPA DOWNS Room #: 239-P [facility] IN M.R.#: [id number] Admission: 05/02/18 Attend Phys: Cooper Moscoso Discharge: Date of : 62 Report #: [id number] THIS REPORT FOR: //name// CC: Butch Soria REASON FOR CONSULTATION: End-stage renal disease. REASON FOR PRESENTATION: Post arrest. HISTORY OF PRESENT ILLNESS: A 57-year-old who is maintained on peritoneal dialysis. She has been failing in the last few months, with repeated hospitalizations for numerous issues. She visited with the [facility] yesterday and was fine. Apparently, the patient had some neck issues and suddenly slumped over and went unresponsive. Her called 911 and CPR was initiated. It looks like that she had resuscitation effort for 20 minutes. There was a mention of V-tach and PEA. She received epinephrine and cardiac shocks. She does have an AICD and it is not clear to us if this has fired or not. After about 35 minutes, the patient regained her pulse. She was taken to [place]. She was hypothermic and unresponsive. Family requested transfer to [facility] for further evaluation and management. She has numerous medical issues and hospitalizations in the past. I am not able to obtain any history from her given the fact that she is currently intubated. PAST MEDICAL HISTORY: 1. Diabetes mellitus with extreme noncompliance. 2. Terminal heart failure. 3. Status post automatic implantable cardioverter-defibrillator. 4. Repeated hospitalizations for numerous issues, most recently for failure to thrive, left-sided pleural effusion and pneumothorax. 5. Coronary artery disease. 6. Cardiomyopathy. 7. Chronic hypertension. 8. Failed hemodialysis. 9. PD patient. 10. PD catheter. 11. Right AV fistula. 12. Status post arrest multiple times. 13. Gastroparesis. FAMILY HISTORY: Unavailable to obtain given the patient's current mental status. SOCIAL HISTORY: It looks like that she lives with her . No reported drug or alcohol abuse. REPORTED MEDICATIONS: [facility] [address] [place] [address] CONSULTATION Name: PIPPA DOWNS Fernando Room #: 239-P [facility] IN ..#: [id number] Admission: 05/02/18 Attend Phys: Cooper Moscoso Discharge: Date of : 62 Report #: [id number] 1. Zoloft. 2. Renvela. 3. Carvedilol. 4. Tradjenta. REVIEW OF SYSTEMS: Unobtainable. PHYSICAL EXAMINATION: GENERAL: Intubated. VITAL SIGNS: Blood pressure is 150/70, pulse rate is 85 and temperature 35.3, going through the hypothermia protocol. CARDIOVASCULAR: No rub detected. ABDOMEN: Soft, distended. EXTREMITIES: Lower extremities, +3 edema. LABORATORY DATA: Laboratory values reviewed. Sodium 132, potassium 3.4, chloride 95, BUN 38, creatinine 4.5 and blood sugar 684. Chest x-ray reviewed. ASSESSMENT, IMPRESSION AND PLAN: 1. Post-cardiac arrest. 2. Going through hypothermia protocol. 3. Encephalopathy. 4. Terminal heart failure. 5. End-stage renal disease, maintained on dialysis. 6. Anion gap acidosis. 7. Respiratory failure. 8. From the renal perspective, we will ask one of my dialysis nurses to drain the PD fluid. She is not in need for any issues related to her dialysis, other than the replacement of her potassium given her instability. Primary team is addressing her hypothermia protocol. 9. Cultures were obtained and she was started on appropriate antibiotics. 10. Cardiology consultation is pending. 11. Pulmonary following for her respiratory failure. 12. Overall very guarded prognosis. <ELECTRONICALLY SIGNED> By: Gloria Ramirez MD 05/07/18 0741 1032 [id number] Gloria Ramirez MD /nt
--- NOTE | ~2018-05-02 | EEG ---
[facility] [address] [place] [address] [address] ELECTROENCEPHALOGRAM Name: PIPPA DOWNS Room #: 237-P [facility] IN M.R.#: [id number] Admission: 05/02/18 Attend Phys: Cooper Humphrey Discharge: 05/12/18 Date of : 62 Report #: [id number] THIS REPORT FOR: //name// CC: Yuliana Moscoso DATE OF SERVICE: 05/08/2018 This patient is being evaluated for hypoxic encephalopathy. EEG was done by placing the electrode by standard 10-20 system of electrode placement. Both referential and sequential montages were used for recording. This patient's EEG does not demonstrate any activity at 7 microvolts but at 3 microvolts, very low voltage activity is present. Photic stimulation is unremarkable. IMPRESSION: This is an abnormal EEG, which would be consistent with severe hypoxic encephalopathy; however, low voltage activity is present. <ELECTRONICALLY SIGNED> By: Moises Chamorro MD 05/14/18 1700 1754 [id number] Moises Chamorro MD /nt
--- NOTE | ~2018-05-02 | HC ---
[facility] [place] [address] [place] [address] CONSULTATION Name: PIPPA DOWNS Room #: 239-P [facility] IN M.R.#: [id number] Admission: 05/02/18 Attend Phys: Cooper Moscoso Discharge: Date of : 62 Report #: [id number] THIS REPORT FOR: //name// CC: Butch Soria DATE OF SERVICE: 05/02/2018 REFERRING PHYSICIAN: Dr. Nicole. REASON FOR REFERRAL: Xdh-ug-xaoesura cardiac arrest. HISTORY OF PRESENT ILLNESS: The patient spots is a 57-year-old white female with complex and severe multiple medical problems, brought to Emergency Room following an apparent cardiac arrest. A pulmonary consultation was requested. The patient was most recently hospitalized in 03/2018. She was treated for heart failure, pleural effusion. She sustained an iatrogenic left pneumothorax with a chest tube placement. Eventually, chest tube was discontinued. She had a residual chronic left-sided pleural effusion that was felt to be mild. She also had an acute respiratory arrest during that hospitalization. The patient had been doing better. She was able to gain some weight. Three days prior to presentation, the patient was found to be hypoglycemic. She complained of neck pain yesterday. Caregiver then massaged her neck. Following this, the patient slumped over and became unresponsive. When EMS arrived, CPR was given for about 20 minutes. The patient was found to be V-tach and PEA. She was given epinephrine along with two cardioversion. It appears that her ICD did not fire. Following 35 minutes of CPR, her pulse returned. The patient was taken to [facility]. At [facility], the patient was found to be hypothermic with temperature of 98 degrees Fahrenheit. She remained unresponsive. She was subsequently transferred to [facility] at the family's request. The patient is under hypothermia protocol. She is not responsive. Daughter is present in the room. 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 [address] [address] CONSULTATION Name: PIPPA DOWNS Room #: 239-[facility] IN ..#: [id number] Admission: 05/02/18 Attend Phys: Cooper Moscoso Discharge: Date of : 62 Report #: [id number] PAST SURGICAL HISTORY: Status post right arm fistula. ALLERGIES: PSEUDOEPHEDRINE, WHICH CAUSES TACHYCARDIA; BACTRIM CAUSES NAUSEA, VOMITING, DIARRHEA; TRIMETHOPRIM SULFA ALSO CAUSES NAUSEA, VOMITING, DIARRHEA; SALMON CAUSES PROFUSE VOMITING. HOME MEDICATIONS: Reviewed. These include Imodium, MiraLax, erythromycin, Megace, midodrine. FAMILY HISTORY: Noncontributory. SOCIAL HISTORY: She is a lifetime nonsmoker, has drank in the past, but not recently. REVIEW OF SYSTEMS: Deferred as the patient is intubated. PHYSICAL EXAMINATION: GENERAL: She is not responsive. VITAL SIGNS: She is hypotensive. She is currently at 32 degrees Celsius, pulse is 70, respiratory rate 16, blood pressure 95/56 mmHg. HEENT: Normocephalic, atraumatic. She is orally intubated. NECK: Supple, without any lymphadenopathy or thyromegaly. CHEST: Breath sounds are fair anteriorly. No obvious rales or wheezes. CARDIOVASCULAR: Normal S1, S2. There is no murmur or gallop. There is no JVD. There is no carotid bruit. Pulses are 2+/4+ bilaterally. ABDOMEN: Soft, nontender, no organomegaly or masses felt. GENITOURINARY: Deferred. RECTAL: Deferred. EXTREMITIES: Cool to touch. No cyanosis, clubbing, or edema. LABORATORY DATA: Chest x-ray shows mild loculated pleural fluid, no pneumothorax. Cardiomegaly is present. Right lung field shows mild increase in congestion. The left lower lobe shows a bronchogram. AICD is noted in the left lung field. ET tube is above the yee at about 3 cm, central line is placed in the right internal jugular. NG tube is in appropriate position. IMPRESSION: 1. Dta-yl-rgpytcvw sudden cardiac in this 57-year-old white female. She has a history of coronary artery disease, severe ischemic cardiomyopathy. Initial rhythm was said to be ventricular tachycardia with pulseless electrical activity. She is currently undergoing hypothermia protocol. 2. Chronic left pleural effusion which appears to be loculated, stable. There is questionable left-sided infiltrates. Possible pneumonia is considered. 3. Acute hypoxic respiratory failure due to above. 4. End-stage renal disease, on peritoneal dialysis. 5. Diabetes mellitus type 2 with profound hyperglycemia, mild metabolic [facility] [address] [place] [address] CONSULTATION Name: PIPPA DOWNS Room #: 239-P [facility] IN M.R.#: [id number] Admission: 05/02/18 Attend Phys: Cooper Moran Danis Discharge: Date of : 62 Report #: [id number] acidosis, diabetic retinopathy and neuropathy, suspect diabetic ketoacidosis. 6. Coronary artery disease, severe ischemic cardiomyopathy, chronic heart failure, ejection fraction approximately 25%. 7. Status post automatic implantable cardioverter-defibrillator placement. 8. Malnutrition and weight loss, recent increase in Megace dose has a result of increased appetite according to the family. She, in fact, has gained some weight. 9. Encephalopathy, probable hypoxic brain injury. RECOMMENDATIONS: We will continue mechanical ventilation, wean O2 for saturation of 90%. I think it is reasonable to add broad-spectrum antibiotics for possible pneumonia. I agree with hypothermia protocol. The patient will need to be reassessed closely regarding possible hypoxic brain injury. DVT and GI prophylaxis will be addressed. <ELECTRONICALLY SIGNED> By: Jamel Guillaume MD 05/03/18 1545 1701 00 Jamel Guillaume MD /nt
[~2018-05-02 04:09] MED LIST changes: +ACIDOPHILUS1 EAC4 PO; +ERYTHROMYCIN250 M1 PO; +LOPERAMIDE 2 MG2 M1 PO; +MEGESTROL40 MG/1 M1 PO; +MIDODRINE HCL 55 M1 PO; +MILK OF MA2400 MG/10 PO; +MIRALAX17 GM PO; +NOVOLOG100 UNIT/1 SUBQ; +PREVALITE PACKET4 GM PO; +PROCHLORPE10 MG/2 ML IV PUSH; +PROCHLORPERAZINE5 M2 PO; +PROTONIX40 M1 PO; +SYNTHROID100 MC1 PO
[2018-05-02 05:08] LABS: BE(vivo) -2.3 mmol/L (-2 to +3); PCO2 35.8 mmHg (35.0-45.0); pH 7.406 (7.360-7.450); sO2 99.9 % (92.0-98.0)
[2018-05-02 05:44] LABS: ALBUMIN 1.3 g/dL (3.4-5.0); CALCIUM 7.5 mg/dL (8.5-10.1); CREATININE 4.5 mg/dL (0.6-1.0); PHOSPHORUS 5.8 mg/dL (2.5-4.9); POTASSIUM 3.4 mmol/L (3.5-5.1)
[2018-05-02 11:04] LABS: D-DIMER 13.94 ug/mLFEU (0.19-0.50); FIBRINOGEN 361.5 mg/dL (210-360)
[2018-05-02 15:30] LABS: BE(vivo) -2.2 mmol/L (-2 to +3); HCO3 23.2 mmol/L (22.0-26.0); PCO2 42.7 mmHg (35.0-45.0); PO2 174.7 mmHg (80.0-100.0); pH 7.353 (7.360-7.450); sO2 99.1 % (92.0-98.0)
[2018-05-02 17:51] LABS: ABSOLUTE NEUTROPHILS 6.7 thou/uL (1.4-8.2); BASOPHILS 0.6 % (0.0-2.0); EOSINOPHILS 0.3 % (0.0-3.0); HEMATOCRIT 24.9 % (37.0-47.0); HEMOGLOBIN 8.3 gm/dL (12.0-15.0); LYMPHOCYTES 7.4 % (24.0-44.0); MCH 33.1 pg (26.0-34.0); MCHC 33.4 g/dL (28.0-37.0); MONOCYTES 4.3 % (1.0-8.0); PLATELET COUNT 165 thou/uL (150-400); POLYS 87.4 % (36.0-66.0); RBC 2.51 mil/uL (4.20-5.00); RDW 16.9 % (10.5-14.5); WBC 7.7 thou/uL (4.0-11.0)
[2018-05-02 18:04] LABS: INR 1.2; PROTIME 12.2 Seconds (9.3-11.4)
[2018-05-02 18:11] LABS: CALCIUM 7.2 mg/dL (8.5-10.1); CREATININE 4.3 mg/dL (0.6-1.0); MAGNESIUM 1.5 mg/dL (1.8-2.4); PHOSPHORUS 4.7 mg/dL (2.5-4.9); TROPONIN-I 0.17 ng/mL (<0.06)
[2018-05-02 18:16] LABS: POTASSIUM 2.7 mmol/L (3.5-5.1)
[2018-05-03] VITALS (23 sets, daily range): BP systolic 105–212; BP diastolic 60–102
[2018-05-03 05:47] LABS: HEMATOCRIT 32.4 % (37.0-47.0); MCH 32.2 pg (26.0-34.0); MCHC 32.5 g/dL (28.0-37.0); MCV 98.9 fL (80.0-100.0); RBC 3.27 mil/uL (4.20-5.00); RDW 16.7 % (10.5-14.5); WBC 14.2 thou/uL (4.0-11.0)
[2018-05-03 05:50] LABS: HEMOGLOBIN 10.5 gm/dL (12.0-15.0)
[2018-05-03 06:01] LABS: ALBUMIN 1.2 g/dL (3.4-5.0); CALCIUM 7.8 mg/dL (8.5-10.1); CREATININE 4.2 mg/dL (0.6-1.0); PHOSPHORUS 5.7 mg/dL (2.5-4.9); TOTAL BILIRUBIN 0.4 mg/dL (<0.1-1.0); TOTAL PROTEIN 4.8 g/dL (6.4-8.2); TROPONIN-I 0.14 ng/mL (<0.06)
[2018-05-03 06:15] LABS: POTASSIUM 4.2 mmol/L (3.5-5.1)
[2018-05-04] VITALS (23 sets, daily range): BP systolic 87–146; BP diastolic 54–74
[2018-05-04 05:18] LABS: HEMATOCRIT 32.4 % (37.0-47.0); HEMOGLOBIN 10.5 gm/dL (12.0-15.0); MCH 32.2 pg (26.0-34.0); MCHC 32.6 g/dL (28.0-37.0); MCV 98.7 fL (80.0-100.0); RBC 3.28 mil/uL (4.20-5.00); RDW 17.9 % (10.5-14.5); WBC 14.8 thou/uL (4.0-11.0)
[2018-05-04 05:30] LABS: ALBUMIN 1.2 g/dL (3.4-5.0); CREATININE 4.4 mg/dL (0.6-1.0); PHOSPHORUS 6.3 mg/dL (2.5-4.9); POTASSIUM 3.6 mmol/L (3.5-5.1)
[2018-05-04 09:12] LABS: URINE BILIRUBIN NEGATIVE (Negative); URINE BLOOD 3+ (Negative); URINE CLARITY CLEAR; URINE COLOR YELLOW; URINE GLUCOSE-RANDOM* 2+ (Negative); URINE KETONES NEGATIVE (Negative); URINE LEUKOCYTES-REFLEX 2+ (Negative); URINE NITRITE-REFLEX POSITIVE (Negative); URINE PROTEIN (DIPSTICK) 3+ (Negative); URINE UROBILINOGEN 0.2 E.U./dl (0.2-1.0)
[2018-05-04 09:21] LABS: CASTS None Seen /LPF (None Seen); CRYSTALS None Seen /LPF (None Seen); MUCUS >6 Heavy strn/LPF (None Seen); SQUAMOUS 4-10 Moderate /LPF (0-3); URINE WBC-REFLEX >25 Many /HPF (0-5)
[2018-05-04 09:22] LABS: WBC CLUMPS Moderate (None Seen); YEAST-REFLEX Present (None Seen)
[2018-05-05] VITALS (20 sets, daily range): BP systolic 89–139; BP diastolic 58–75
[2018-05-05 03:01] LABS: HEMATOCRIT 29.2 % (37.0-47.0); HEMOGLOBIN 9.4 gm/dL (12.0-15.0); MCH 31.6 pg (26.0-34.0); MCHC 32.3 g/dL (28.0-37.0); MCV 98.1 fL (80.0-100.0); RBC 2.98 mil/uL (4.20-5.00); RDW 17.4 % (10.5-14.5); WBC 14.7 thou/uL (4.0-11.0)
[2018-05-05 03:09] LABS: CALCIUM 7.8 mg/dL (8.5-10.1); CREATININE 4.6 mg/dL (0.6-1.0); POTASSIUM 3.6 mmol/L (3.5-5.1)
[2018-05-06] VITALS (21 sets, daily range): BP systolic 85–107; BP diastolic 57–66
[2018-05-06 06:18] LABS: HEMATOCRIT 27.7 % (37.0-47.0); MCH 32.4 pg (26.0-34.0); MCHC 32.6 g/dL (28.0-37.0); MCV 99.3 fL (80.0-100.0); RBC 2.79 mil/uL (4.20-5.00); RDW 17.1 % (10.5-14.5)
[2018-05-06 06:25] LABS: CALCIUM 7.6 mg/dL (8.5-10.1); CREATININE 5.4 mg/dL (0.6-1.0); POTASSIUM 4.3 mmol/L (3.5-5.1)
[2018-05-07] VITALS (23 sets, daily range): BP systolic 83–121; BP diastolic 54–90
[2018-05-07 10:01] LABS: ALBUMIN 0.9 g/dL (3.4-5.0); CALCIUM 7.5 mg/dL (8.5-10.1); CREATININE 6.1 mg/dL (0.6-1.0); DIRECT BILIRUBIN 0.3 mg/dL (<0.1-0.3); POTASSIUM 4.6 mmol/L (3.5-5.1); TOTAL BILIRUBIN 0.7 mg/dL (<0.1-1.0); TOTAL PROTEIN 4.5 g/dL (6.4-8.2)
[2018-05-07 11:27] LABS: BE(vivo) -9.6 mmol/L (-2 to +3); HCO3 13.6 mmol/L (22.0-26.0); PCO2 22.6 mmHg (35.0-45.0); PO2 134.3 mmHg (80.0-100.0); pH 7.397 (7.360-7.450); sO2 98.7 % (92.0-98.0)
[2018-05-08] VITALS (24 sets, daily range): BP systolic 97–134; BP diastolic 59–74
[2018-05-08 05:28] LABS: CREATININE 4.2 mg/dL (0.6-1.0)
[2018-05-08 05:32] LABS: ABSOLUTE NEUTROPHILS 8.3 thou/uL (1.4-8.2); BASOPHILS 0.4 % (0.0-2.0); EOSINOPHILS 0.1 % (0.0-3.0); HEMATOCRIT 26.5 % (37.0-47.0); HEMOGLOBIN 8.5 gm/dL (12.0-15.0); LYMPHOCYTES 6.9 % (24.0-44.0); MCH 32.3 pg (26.0-34.0); MCV 100.8 fL (80.0-100.0); PLATELET COUNT 171 thou/uL (150-400); POLYS 84.6 % (36.0-66.0); RBC 2.63 mil/uL (4.20-5.00); RDW 17.1 % (10.5-14.5); WBC 9.8 thou/uL (4.0-11.0)
[2018-05-09] VITALS (22 sets, daily range): BP systolic 90–121; BP diastolic 62–83
[2018-05-09 05:22] LABS: HEMATOCRIT 32.3 % (37.0-47.0); MCH 31.5 pg (26.0-34.0); MCV 101.8 fL (80.0-100.0); PLATELET COUNT 214 thou/uL (150-400); RBC 3.17 mil/uL (4.20-5.00); RDW 17.2 % (10.5-14.5); WBC 13.8 thou/uL (4.0-11.0)
[2018-05-09 05:26] LABS: CREATININE 4.9 mg/dL (0.6-1.0); POTASSIUM 4.1 mmol/L (3.5-5.1)
[2018-05-09 06:46] LABS: ABSOLUTE NEUTROPHILS 12.3 thou/uL (1.4-8.2); METAMYELOCYTES 1 %; POLYCHROMASIA 1+
[2018-05-10] VITALS (24 sets, daily range): BP systolic 88–114; BP diastolic 59–80
[2018-05-11] VITALS (23 sets, daily range): BP systolic 91–108; BP diastolic 58–74
[2018-05-12] VITALS (16 sets, daily range): BP systolic 0–112; BP diastolic 0–71
== END 2018-05-12 20:40 | DRG 870 ==
LOC: ICU 04:09
PROVIDERS: Hospitalist; Internal Medicine Pulmonary Disease; Nurse Practitioner Acute Care; Nurse Practitioner Family; Pediatrics
PROC: 02HV33Z Insertion of Infusion Device into Superior Vena Cava, Percutaneous Approach (ICD-10-PCS; principal; 2018-05-02)
PROC: 5A1955Z Respiratory Ventilation, Greater than 96 Consecutive Hours (ICD-10-PCS; principal; 2018-05-02)
PROC: 3E1M39Z Irrigation of Peritoneal Cavity using Dialysate, Percutaneous Approach (ICD-10-PCS; 2018-05-03)
PROC: 5A1D70Z Performance of Urinary Filtration, Intermittent, Less than 6 Hours Per Day (ICD-10-PCS; 2018-05-07)
PROC: 5A1D70Z Performance of Urinary Filtration, Intermittent, Less than 6 Hours Per Day (ICD-10-PCS; 2018-05-09)
DX: A41.9 Sepsis, unspecified organism (principal); J96.01 Acute respiratory failure with hypoxia; N18.6 End stage renal disease; E11.10 Type 2 diabetes mellitus with ketoacidosis without coma; E43 Unspecified severe protein-calorie malnutrition; G93.1 Anoxic brain damage, not elsewhere classified; E87.2 Acidosis; I50.42 Chronic combined systolic (congestive) and diastolic (congestive) heart failure; R18.8 Other ascites; I47.2 Ventricular tachycardia; Z68.1 Body mass index [BMI] 19.9 or less, adult; I13.2 Hypertensive heart and chronic kidney disease with heart failure and with stage 5 chronic kidney disease, or end stage renal disease; I46.9 Cardiac arrest, cause unspecified; I25.10 Atherosclerotic heart disease of native coronary artery without angina pectoris; T68.XXXA Hypothermia, initial encounter; E11.319 Type 2 diabetes mellitus with unspecified diabetic retinopathy without macular edema; E11.40 Type 2 diabetes mellitus with diabetic neuropathy, unspecified; F41.9 Anxiety disorder, unspecified; F32.9 Major depressive disorder, single episode, unspecified; H54.62 Unqualified visual loss, left eye, normal vision right eye; E78.5 Hyperlipidemia, unspecified; E11.65 Type 2 diabetes mellitus with hyperglycemia; E11.39 Type 2 diabetes mellitus with other diabetic ophthalmic complication; H42 Glaucoma in diseases classified elsewhere; E87.6 Hypokalemia; E83.42 Hypomagnesemia; K74.60 Unspecified cirrhosis of liver; E11.22 Type 2 diabetes mellitus with diabetic chronic kidney disease; Z51.5 Encounter for palliative care; Z66 Do not resuscitate; I25.5 Ischemic cardiomyopathy; Z88.8 Allergy status to other drugs, medicaments and biological substances; Z88.2 Allergy status to sulfonamides; Z91.19 Patient's noncompliance with other medical treatment and regimen; Z95.810 Presence of automatic (implantable) cardiac defibrillator; I25.2 Old myocardial infarction; Z79.4 Long term (current) use of insulin; Z79.899 Other long term (current) drug therapy
CPT/HCPCS: 10078; 32100; 33000